=== PATIENT | male | born 1930 | race Caucasian/White ===

== ENCOUNTER 2016-11-13 21:27 | Emergency (ER) | payer MEDICARE, BC, OTHER ==
[2016-11-13 22:06] LABS: #Basophils 0.1 thou/uL (0.0-0.2); #Eosinphils 0.2 thou/uL (0.0-0.7); #Lymphocytes 1.9 thou/uL (1.20-3.40); #Monocytes 0.6 thou/uL (0.11-0.59); #Neutrophils 5.4 thou/uL (1.40-6.50); %Basophils 0.8 % (0.0-1.0); %Eosinophils 2.1 % (0.0-10.0); %Lymphocytes 23.5 % (21.0-51.0); %Monocytes 7.5 % (0.0-10.0); Hematocrit 42.9 % (42.0-52.0); Mean Platelet Volume 7.8 fL (7.4-10.4); Red Blood Cell (RBC) Count 4.38 mill/uL (4.70-6.10); White Blood Cell (WBC) Count 8.2 thou/uL (4.8-10.8)
[2016-11-13 22:24] LABS: ALT (SGPT) 12 U/L (8-55); AST (SGOT) 20 U/L (5-34); Alkaline Phosphatase 67 U/L (40-150); Anion Gap 14 mmol/L (10-20); BUN (Urea Nitrogen) 25 mg/dL (8.4-25.7); Bilirubin, Total 0.4 mg/dL (0.2-1.2); Calc. Creatinine Clearance 0 mL/min (70-130); Calcium 9.2 mg/dL (7.8-10.44); Carbon Dioxide 20 mmol/L (23-31); Chloride 112 mmol/L (98-107); Estimated GFR-MDRD 68; Globulin 2.4 g/dL (2.4-3.5); Protein, Total 5.9 g/dL (5.8-8.1)
[2016-11-13 22:32] LABS: Troponin I Less than 0.010 ng/mL (< 0.028)
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
[2016-11-13] MEDS ORDERED: Acetaminophen 325 MG TAB ONE (23:52)
[2016-11-13 23:54] LABS: Bilirubin Negative (Negative); Blood, Urine Small (Negative); Glucose, Urine (Dipstick) Negative (Negative); Ketone, Urine Negative (Negative); Nitrite Negative (Negative); Protein, Urine (Dipstick) Negative (Neg-Trace); Urobilinogen 0.2 mg/dL (0.2-1.0)
[2016-11-13 23:56] LABS: Bacteria/HPF None Seen HPF (None Seen); Hyaline Casts/LPF 0-3 HYALINE CAST LPF (0-3 Hyaline); Squamous Epithelial None Seen HPF (0-3); WBC/HPF None Seen HPF (0-3)
== END 2016-11-14 00:07 | disposition home or self-care (01) ==
LOC: ERS 21:27
DX: R07.81 Pleurodynia (principal); R31.9 Hematuria, unspecified; F17.210 Nicotine dependence, cigarettes, uncomplicated; V43.62XA Car passenger injured in collision with other type car in traffic accident, initial encounter
CPT/HCPCS: 36415; 71010; 80053; 81003; 81015; 82553; 84484; 85025; 93005

== ENCOUNTER 2018-11-05 14:32 | Observation (INO) | payer MEDICARE, BC ==
[2018-11-05 15:01] LABS: #Eosinphils 0.1 thou/uL (0.0-0.7); #Lymphocytes 1.9 thou/uL (1.20-3.40); #Monocytes 0.7 thou/uL (0.11-0.59); #Neutrophils 5.1 thou/uL (1.40-6.50); %Basophils 0.6 % (0.0-1.0); %Eosinophils 1.1 % (0.0-10.0); %Lymphocytes 23.7 % (21.0-51.0); %Monocytes 9.3 % (0.0-10.0); %Neutrophils 65.4 % (42.0-75.0); Hemoglobin 12.9 g/dL (14.0-18.0); Mean Corpuscular HGB CONC 33.6 g/dL (32.0-36.0); Mean Corpuscular Hemoglobin 32.2 pg (27.0-31.0); Mean Corpuscular Volume 95.9 fL (78.0-98.0); Mean Platelet Volume 7.8 fL (7.4-10.4); Platelet Count 190 thou/uL (130-400); RBC Distribution Width 11.5 % (11.5-14.5); Red Blood Cell (RBC) Count 4.02 mill/uL (4.70-6.10); White Blood Cell (WBC) Count 7.8 thou/uL (4.8-10.8)
[2018-11-05 15:22] LABS: ALT (SGPT) 9 U/L (8-55); AST (SGOT) 19 U/L (5-34); Albumin 3.7 g/dL (3.4-4.8); Alkaline Phosphatase 65 U/L (40-150); Anion Gap 9 mmol/L (10-20); BUN (Urea Nitrogen) 18 mg/dL (8.4-25.7); Bilirubin, Total 0.8 mg/dL (0.2-1.2); Calc. Creatinine Clearance 0 mL/min (70-130); Calcium 8.8 mg/dL (7.8-10.44); Carbon Dioxide 23 mmol/L (23-31); Chloride 100 mmol/L (98-107); Estimated GFR-MDRD 68; Globulin 1.8 g/dL (2.4-3.5); Glucose 106 mg/dL (83-110); Potassium 4.1 mmol/L (3.5-5.1); Protein, Total 5.5 g/dL (5.8-8.1); Sodium 128 mmol/L (136-145)
[2018-11-05 15:24] LABS: Bilirubin Negative (Negative); Blood, Urine Negative (Negative); Clarity Clear (Clear); Glucose, Urine (Dipstick) Normal (Negative); Leukocyte Negative Leu/uL (Negative); Nitrite Negative (Negative); Protein, Urine (Dipstick) Negative (Neg-Trace); Urobilinogen Normal mg/dL (Less than 2)
--- NOTE | 2018-11-05 15:38 | CT ---
Exam: Head CT without contrast HISTORY: Syncope COMPARISON: none FINDINGS: Hemorrhage: No intraparenchymal hemorrhage or extra-axial hematoma. Brain parenchyma: Cortical rosado-white matter differentiation is preserved. No mass effect or midline shift. Basilar cisterns are patent.Age-appropriate brain volume loss. Ventricular system: Ventricles and sulci are patent and symmetric. Calvarium: Intact. Sinuses and mastoid air cells: Adequate aeration. IMPRESSION: No acute intracranial process.
--- NOTE | 2018-11-05 15:54 | RAD ---
PORTABLE CHEST: HISTORY: Syncope. COMPARISON: 11/13/2016 exam. FINDINGS: Heart size is within normal limits. There are atherosclerotic changes of the aorta. The lungs show chronic change. No focal infiltrates. IMPRESSION: Chronic lung change. No acute process. POS: [facility]
[2018-11-05] MEDS ORDERED: Acetaminophen 325 MG TAB PO PRN (18:18)
[2018-11-05] MEDS ORDERED: Ondansetron PF 4 MG/2 ML Vial IVP PRN (18:18)
[2018-11-05] MEDS ORDERED: Nicotine 14 MG PATCH TD PRN (18:18)
[2018-11-05 18:26] LABS: Troponin I Less than 0.010 ng/mL (< 0.028)
[2018-11-05 19:19] VITALS: BMI 22.8
[2018-11-05] MEDS ORDERED: Senokot S 8.6-50 MG TAB PO PRN (20:03)
[2018-11-05] MEDS ORDERED: Labetalol HCl 100 MG/20 ML VIAL SLOW IVP PRN (20:03)
[2018-11-05] MEDS ORDERED: hydrALAZINE 20 MG/ML VIAL SLOW IVP PRN (20:03)
[2018-11-05] MEDS: Famotidine 20 MG TAB PO SCH (20:30)
[2018-11-05] MEDS: Sodium Chloride 0.9% 1,000 ML IV SCH (20:30)
[2018-11-05] MEDS: Enoxaparin Sodium 40 MG/0.4 ML SYRINGE SC SCH (20:30)
--- NOTE | 2018-11-05 20:58 | HP ---
CHIEF COMPLAINT: Syncope. PRIMARY CARE PROVIDER: Dr. Sheldon. HISTORY OF PRESENT ILLNESS: Mr. Clinton is a pleasant 88-year-old male with past medical history significant for BPH, on Flomax, which he recently stopped secondary to dizziness without relief, who presented to the hospital today after an episode of syncope. The patient was at taoism when the episode occurred. He had been up and walking and fell to the ground. He did have a presyncopal sensation of lightheadedness. He does not remember any other details. His [id number], who is an FAMILY NURSE, was at the scene and took his pulse, and noticed a 5- to 6-second pause and some irregularity in his pulse. EMS was called, and the patient was brought to our facility for further workup and treatment. His son is at the bedside and provides some history as well. Apparently, the patient had another syncopal event last Tuesday as well. He was not treated at that time. The patient reports that he has had some increasing dizziness with ambulation, as well as some dizziness with positional changes. Yesterday, he admits to drinking very little water as he was at a [employer] in [place] all day. He was sweating fairly profusely at that time. On arrival, blood pressure was mildly hypotensive at 88/51. He was given a 500 mL of bolus, and repeat blood pressure was 127/64. EKG showed normal sinus rhythm, no dynamic ST- or T-wave changes and no conduction abnormality. Per review of telemetry, he does have occasional PVCs. The patient has no significant cardiac history. He says that he has seen Dr. Yusuf in the past approximately 4 years ago for some possible irregularity in his heartbeat. He underwent stress testing at that time. He has not followed up or know of any specific cardiac diagnosis. REVIEW OF SYSTEMS: A 12-point review of systems was performed. As mentioned, the patient has reported some dizziness with ambulation over the past year or so as well as 2 syncopal events. Otherwise, 12-point review of systems was performed and is negative. He denies any recent illnesses or fevers. He does have chronic issue with frequent urination, secondary to BPH. PAST MEDICAL HISTORY: Squamous cell carcinoma of the face, status post Mohs procedure. PAST SURGICAL HISTORY: Mohs procedure. SOCIAL HISTORY: The patient lives alone. He is a smoker and has been smoking since the time he was 18. He is currently smoking half pack of cigarettes per day. He drinks alcohol socially. No illicit drug use. FAMILY HISTORY: Negative for coronary artery disease or CVA. The patient also reports he cannot think of any cancers that run in his family. ALLERGIES: NO KNOWN DRUG ALLERGIES. HOME MEDICATIONS: Aspirin 325 mg daily. PHYSICAL EXAMINATION: VITAL SIGNS: Blood pressure 127/64, pulse is 68, O2 saturation is 96% on room air, and respirations 17. GENERAL: This is an elderly male, resting comfortably in the emergency department, in no acute distress, conversing easily. HEENT: Head is atraumatic and normocephalic. Mucous membranes are moist. NECK: Trachea is midline. No JVD. CV: S1 and S2. Regular rate and rhythm. No appreciable murmurs, rubs, or gallops. LUNGS: Regular respiratory rate and pattern, overall decreased vesicular breath sounds; however, no rhonchi or wheezes noted. ABDOMEN: Positive bowel sounds. Soft, nontender. EXTREMITIES: No edema. Warm and well perfused. NEUROLOGIC: Cranial nerves 2 through 12 are grossly intact. The patient is nonfocal. PSYCHIATRIC: Appropriate affect in manner. Alert and oriented x3. LABORATORY DATA: White blood cell count 7.8, hemoglobin 12.9, hematocrit 38.5, and platelets 190. Sodium 128, potassium 4.1, anion gap is 9, BUN 18, creatinine 1.04, AST 19, ALT 9, and alkaline phosphatase 65. Troponin negative x2. BNP 176. ASSESSMENT: 1. Syncope - suspect orthostatic hypotension versus arrhythmogenic/ bradyarrhythmia. 2. Hyponatremia. 3. Occasional premature ventricular contractions. 4. Benign prostatic hypertrophy. 5. Tobacco abuse. PLAN: At this time, we will admit the patient for further syncopal workup. We will continue telemetry monitoring. We will continue gentle IV fluid resuscitation and get orthostatic vital signs. We will order a carotid Doppler as well as an echocardiogram. Magnesium level is currently pending. We will replete as indicated. Given his history and syncopal event x2, we will go ahead and consult his winder fixer, Dr. Yusuf for recommendations regarding consideration for event recorder versus possible implantable loop recorder. If he is indeed profoundly orthostatic, may need to start midodrine versus Northera. Further recommendations based on findings of hospital course and noninvasive testing. GI and DVT prophylaxis have been ordered. Fall precautions are in place. Job ID: [id number] MTDD
[2018-11-05 21:22] LABS: Troponin I Less than 0.010 ng/mL (< 0.028)
[2018-11-06] MEDS: Sodium Chloride 0.9% 1,000 ML IV SCH (05:23)
[2018-11-06 06:15] LABS: Anion Gap 7 mmol/L (10-20); BUN (Urea Nitrogen) 16 mg/dL (8.4-25.7); Calc. Creatinine Clearance 54 mL/min (70-130); Calcium 8.9 mg/dL (7.8-10.44); Carbon Dioxide 24 mmol/L (23-31); Chloride 111 mmol/L (98-107); Estimated GFR-MDRD 74; Glucose 80 mg/dL (83-110); Potassium 4.1 mmol/L (3.5-5.1); Sodium 138 mmol/L (136-145)
[2018-11-06] MEDS: Famotidine 20 MG TAB PO SCH ×2 (09:42→20:12)
--- NOTE | 2018-11-06 11:17 | CON ---
DATE OF CONSULTATION: 11/06/2018 INDICATION FOR CONSULTATION: An 88-year-old patient with syncopal episode. HISTORY OF PRESENT ILLNESS: This is a very pleasant 88-year-old gentleman, who was in anabaptism last week when he had a syncopal episode. After anabaptism, he did not have any forewarning, but then all of a sudden had a syncopal episode. Yesterday, he had some episodes of being lightheaded and dizzy, but did not have any syncopal episode. He presented to the emergency room and was admitted to the hospital previously. He had been on medications for his prostate several years ago and he had to stop these after becoming dizzy. At this time, the only medication he is taking is an aspirin. He has had no previous cardiac history. As far as we can determine, he has had a negative stress test in the past and the ejection fraction has been normal. This morning, he underwent carotid Doppler evaluation. He did have some left internal carotid artery stenosis, which is less than 50% probably. The full report is still pending, but when I was there looking at the pictures and images as the guitar technician was taking these pictures, it did not appear to be critical. I do not believe he has had another echocardiogram. We will need to repeat the echocardiogram to determine and to ensure that his left ventricular systolic function is normal. This has been ordered, but not yet taken. Otherwise, he has had no cardiac complaints. He denied any shortness of breath or chest pain, and overall has been relatively healthy for someone of his age. PAST MEDICAL HISTORY: Significant for some squamous cell carcinoma of the face and he had a Mohs procedure performed. Otherwise, he has been relatively healthy. SOCIAL HISTORY: He lives alone. He has smoked in the past. I believe he continues to smoke up to half a pack a day. He drinks occasional alcohol. FAMILY HISTORY: Negative for any early heart disease. ALLERGIES: NONE. MEDICATIONS: He only takes an aspirin a day, a full dose aspirin. REVIEW OF SYSTEMS: A 12-point review of systems is unremarkable, except he does have some problem with some hesitancy with urination and has a history of a benign prostatic hypertrophy. Otherwise, he had no significant complaints. He said that he noticed he has become weaker, but no chest pain, no shortness of breath. No nausea, vomiting, or diarrhea. No dysuria, polyuria, or hematuria. He has no claudication symptoms, and the only complaint is the dizziness, which he has noted recently. PHYSICAL EXAMINATION: GENERAL: Reveals a well-developed, well-nourished gentleman, who is in no acute distress. He is alert. He is oriented. VITAL SIGNS: Stable. His blood pressure is 120/56, heart rate is in the 70s to 80s and shows a sinus rhythm. He has had no pauses and no significant bradycardia. Respiratory rate is 16. His temperature is 99.9 today, earlier was 97.8. HEENT: Shows the head to be normocephalic and atraumatic. Carotid pulses are present. I could not hear any significant bruits. CHEST: Clear to auscultation without rales, rhonchi, or wheezing. CARDIOVASCULAR: Reveals a regular rate and rhythm. He has occasional ectopy, but otherwise unremarkable. There are no significant murmurs, heaves, thrills, bruits, or rubs. ABDOMEN: Soft, flat, nontender. Positive bowel sounds are present. There is no organomegaly or masses noted. Femoral pulses are present. EXTREMITIES: Showed no clubbing, cyanosis, or edema. Pedal pulses are present. Also, radial pulses present. NEUROLOGICAL: Neurologically, he appears to be fully intact. I cannot elicit any gross focal motor deficits for someone of his age. He seems to have normal strength and normal tone. SKIN: Warm and dry. LABORATORY DATA: Shows a WBC of 7.8, hemoglobin is 12.9, platelet count is 190,000. Sodium is 138, potassium is 4.1, BUN is 16, his creatinine is 0.96, and his blood sugar is 80. BNP was 176, and cardiac enzymes are negative. Urinalysis also showed no evidence of infection. IMPRESSION: 1. Syncopal episode 1 week ago with no significant treatment or followup at that time, but uncertain etiology. The family member was present earlier was an FAMILY LITERACY COORDINATOR, who said that she had felt that the pulse was weak at that time and also felt that there were some pauses. He has had no pauses here on the monitor or any significant arrhythmias. 2. Lightheadedness or dizziness. The carotid arteries did not appear to be critical, but he does have some left internal carotid artery stenosis, most likely less than 50%. We will await the results of the Doppler interpretation. 3. Benign prostatic hypertrophy. He seems to manage this quite well despite not being on any medications. At this time, we will continue to follow him this morning, but most likely he will best be served by undergoing an implantation of an implantable loop recorder. We will also check orthostatic blood pressures to see whether or not he maybe orthostatic. In the past, we felt that his syncopal episode was due to orthostatic hypotension. If the blood pressures are stable, then most likely he will need to undergo implantation of a LINQ to determine whether or not he is having any arrhythmias or pauses. He did mention to me that in the past if he drinks a lots of fluid and stays up with the intake, then normally it helps dizziness or lightheadedness, and it is certainly maybe due to hypotension. 4. History of tobacco abuse. He will be again instructed not to smoke. Thank you very much for allowing us to participate in care of this pleasant gentleman. I have discussed already with him the possibility he may need to undergo implantation of a LINQ, but I will await the results of the echocardiogram prior to making that decision. Job ID: [id number]
--- NOTE | 2018-11-06 11:30 | ULT ---
BILATERAL CAROTID DUPLEX ULTRASOUND: HISTORY: Syncope. FINDINGS: Real-time color Doppler evaluation of the right and left carotid systems was performed. This shows s ome moderate plaque formation bilaterally more prominent at the origin of the right internal carotid artery. On the right side, peak systolic velocities of the common carotid were 126 cm/s. Internal carotid ve locities were 98 cm/s. Internal carotid velocities were 89 cm/s. On the left side, peak systolic velocities of the common carotid were 95 cm/s. Internal carotid velo cities were 169 cm/s with diastolic velocities of 41 cm/s. External carotid velocities were 100 cm/s . Vertebral flow is antegrade bilaterally. IMPRESSION: 1. No evidence of hemodynamically significant stenosis of the right internal carotid artery. 2. Findings that would suggest 50-69% narrowing of the left internal carotid artery by NASCET criter ia. Further evaluation with CT angiography may be beneficial in this case. POS: [facility]
--- NOTE | 2018-11-06 13:46 | PDOC.HOSPP ---
- Subjective Encounter Date: 11/06/18 Encounter Time: 09:43 Subjective: 88 y/o male with BPH current off flomax due to dizziness admitted after a syncopal episode. Patient was noted to be hypotension on arrival. Relative also reported 6 second pause in the immediate post syncope period. Treated with IVF with improvement of BP and dizziness. Denied chest pain, nausea, vomiting, or change in bowel habit. - Objective Vital Signs & Weight: Vital Signs (12 hours) Temp Pulse Resp BP BP BP BP 11/06/18 11:00 97.4 F L 69 18 129/71 11/06/18 08:52 81 120/56 L 11/06/18 08:15 59 L 112/59 L 11/06/18 07:47 99.9 F H 71 16 11/06/18 04:00 97.8 F 72 18 131/68 BP Pulse Ox 11/06/18 11:00 97 11/06/18 08:52 11/06/18 08:15 11/06/18 07:47 145/71 H 95 11/06/18 04:00 94 L Weight Weight 154 lb 5 oz I&O: 11/05/18 11/06/18 11/07/18 06:59 06:59 06:59 Intake Total 1300 480 Output Total 2500 550 Balance -1200 -70 Result Diagrams: 11/05/18 14:54 11/06/18 05:32 Hospitalist ROS - Medication Medications: Active Medications Generic Name Dose Route Start Last Admin Trade Name Freq PRN Reason Stop Dose Admin Enoxaparin Sodium 40 mg 11/05/18 21:00 11/05/18 20:30 Lovenox SC 40 mg 2100 ROSALEE Administration Famotidine 20 mg 11/05/18 21:00 11/06/18 09:42 Pepcid PO 20 mg BID ROSALEE Administration Sodium Chloride 1,000 mls @ 100 mls/hr 11/05/18 19:15 11/06/18 05:23 Normal Saline 0.9% IV 1,000 mls .Q10H ROSALEE Administration - Exam General Appearance: awake alert Eye: anicteric sclera ENT: normocephalic atraumatic, moist mucosa Neck: supple, symmetric Heart: RRR Respiratory: no wheezes, no ronchi, normal chest expansion Gastrointestinal: soft, non-tender, non-distended, normal bowel sounds Extremities: no cyanosis, no edema Neurological: cranial nerve grossly intact, no focal deficits Musculoskeletal: generalized weakness, diffuse muscle atrophy Psychiatric: normal affect, A&O x 3 Hosp A/P (1) Syncope and collapse Code(s): R55 - SYNCOPE AND COLLAPSE Status: Acute (2) Hypotension Status: Acute (3) Dehydration with hyponatremia Code(s): E87.1 - HYPO-OSMOLALITY AND HYPONATREMIA Status: Acute (4) Orthostatic hypotension Code(s): I95.1 - ORTHOSTATIC HYPOTENSION Status: Acute (5) BPH (benign prostatic hyperplasia) Code(s): N40.0 - BENIGN PROSTATIC HYPERPLASIA WITHOUT LOWER URINRY TRACT SYMP Status: Acute (6) Arrhythmia Code(s): I49.9 - CARDIAC ARRHYTHMIA, UNSPECIFIED Status: Suspected (7) Physical deconditioning Code(s): R53.81 - OTHER MALAISE Status: Acute (8) Atherosclerosis of left carotid artery Code(s): I65.22 - OCCLUSION AND STENOSIS OF LEFT CAROTID ARTERY Status: Acute - Plan Start midodrine as patient is still orthostatic despite looking euvolemic. Start lipitor and asa for carotid atherosclerosis DC IVF. Awaiting echo report Continue telemetry
[2018-11-06] MEDS: Midodrine HCl 5 MG TAB PO SCH ×2 (14:25→20:12)
[2018-11-06] MEDS: Enoxaparin Sodium 40 MG/0.4 ML SYRINGE SC SCH (20:12)
[2018-11-06] MEDS ORDERED: Atorvastatin Calcium 40 MG TAB PO SCH (21:00)
[2018-11-07] MEDS: Famotidine 20 MG TAB PO SCH (08:14)
[2018-11-07] MEDS: Midodrine HCl 5 MG TAB PO SCH ×2 (08:14→16:00)
--- NOTE | 2018-11-07 08:46 | PDOC.CPN ---
- Subjective Date: 11/07/18 Time: 08:54 Interval history: The pt seen and examined. No cardiac complaints. 19 beats of AIVR with PVCs last night with no symptoms. - Objective Allergies/Adverse Reactions: Allergies Allergy/AdvReac Type Severity Reaction Status Date / Time No Known Allergies Allergy Unverified 11/05/18 18:39 Visit Medications: Current Medications Acetaminophen (Tylenol) 650 mg PO Q4H PRN PRN Reason: Headache/Fever/Mild Pain (1-3) Aspirin (Ecotrin) 81 mg PO DAILY [facility] Last Admin: 11/07/18 08:14 Dose: 81 mg Atorvastatin Calcium (Lipitor) 40 mg PO HS [facility] Last Admin: 11/06/18 20:12 Dose: 40 mg Enoxaparin Sodium (Lovenox) 40 mg SC 2100 [facility] Last Admin: 11/06/18 20:12 Dose: 40 mg Famotidine (Pepcid) 20 mg PO BID [facility] Last Admin: 11/07/18 08:14 Dose: 20 mg Hydralazine HCl (Apresoline) 10 mg SLOW IVP Q4H PRN PRN Reason: SBP > 180 and HR < 70 Labetalol HCl (Normodyne) 20 mg SLOW IVP Q4H PRN PRN Reason: SBP > 180 and HR >/= 70 Midodrine (Proamatine) 5 mg PO TID [facility] Last Admin: 11/07/18 08:14 Dose: 5 mg Nicotine (Nicoderm Patch) 14 mg TD Q24H PRN PRN Reason: Smoking Cessation Ondansetron HCl (Zofran) 4 mg IVP Q6H PRN PRN Reason: Nausea/Vomiting Senna/Docusate Sodium (Senokot S) 2 tab PO BIDPRN PRN PRN Reason: Constipation Sodium Chloride (Flush - Normal Saline) 10 ml IVF PRN PRN PRN Reason: Saline Flush Last Admin: 11/07/18 08:15 Dose: 10 ml Vital Signs & Weight: Vital Signs Temp Pulse Resp BP Pulse Ox 11/07/18 04:00 98 F 72 20 134/68 95 Weight 150 lb 3.2 oz - Physical Exam General: alert & oriented x3 HEENT: mucus membranes moist Neck: supple neck Cardiac: regular rate and rhythm, S1/S2 Lungs: clear to auscultation Neuro: cranial nerve 2-12 intact Abdomen: unremarkable Skin: clear Musculoskeletal: decreased range of motion - Labs Result Diagrams: 11/05/18 14:54 11/06/18 05:32 Troponin/CKMB Troponin I Less than 0.010 ng/mL (< 0.028) 11/05/18 20:52 - Telemetry Sinus rhythms and dysrhythmias: sinus rhythm (SR with occ PVCs) - Assessment/Plan Assessment/Plan: 1. Syncope - No pauses for more than 24 hrs. He may have syncopal episode possible due to Orthostatic Hypotension. On Midodrine 5mg TID;Will order TEDs from this AM. 2. Current smoker - Strongly recommend tobacco cessation. MAR reviewed * Echo on 11/06/2018 with EF 50-55%, grade I dd, mild MR, TR, and VA * From Cardiac standpoint, the pt is stable to d/c home with 7 day EVR. The pt will f/u with Dr Yusuf' office within 1 wk (same day he drops off his EVR device to Dr Yusuf' office) Pt. seen and eval. I agree with the A/P by the [employer]. We have discussed the pt. Chest clear. RRR , occasional ectopy. Okay to discharge. Violetta
[2018-11-07] MEDS ORDERED: Aspirin 81 mg Enteric Coated Tablet PO SCH (09:00)
--- NOTE | 2018-11-07 14:23 | PDOC.HOSPP ---
- Subjective Encounter Date: 11/07/18 Encounter Time: 14:22 Subjective: Ms. Clinton was seen today in follow-up of syncope. He does not have any complaints. - Objective Vital Signs & Weight: Vital Signs (12 hours) Temp Pulse Resp BP BP BP BP 11/07/18 12:00 98.6 F 77 16 109/59 L 113/53 L 132/68 11/07/18 08:00 97.9 F 74 18 121/68 125/79 120/72 158/74 H 11/07/18 04:00 98 F 72 20 134/68 Pulse Ox 11/07/18 12:00 94 L 11/07/18 08:00 96 11/07/18 04:00 95 Weight Weight 150 lb 3.2 oz I&O: 11/06/18 11/07/18 11/08/18 06:59 06:59 06:59 Intake Total 1300 3160 820 Output Total 2500 2550 1300 Balance -1200 610 -480 Result Diagrams: 11/05/18 14:54 11/06/18 05:32 Hospitalist ROS - Medication Medications: Active Medications Generic Name Dose Route Start Last Admin Trade Name Freq PRN Reason Stop Dose Admin Aspirin 81 mg 11/07/18 09:00 11/07/18 08:14 Ecotrin PO 81 mg DAILY ROSALEE Administration Atorvastatin Calcium 40 mg 11/06/18 21:00 11/06/18 20:12 Lipitor PO 40 mg HS ROSALEE Administration Enoxaparin Sodium 40 mg 11/05/18 21:00 11/06/18 20:12 Lovenox SC 40 mg 2100 ROSALEE Administration Famotidine 20 mg 11/05/18 21:00 11/07/18 08:14 Pepcid PO 20 mg BID ROSALEE Administration Midodrine 5 mg 11/06/18 15:00 11/07/18 08:14 Proamatine PO 5 mg TID ROSALEE Administration Sodium Chloride 10 ml 11/05/18 18:39 11/07/18 08:15 Flush - Normal Saline IVF 10 ml PRN PRN Administration Saline Flush - Exam Eye: PERRL, anicteric sclera Heart: RRR, no murmur, no gallops, no rubs, normal peripheral pulses Respiratory: CTAB, no wheezes, no rales, no ronchi, normal chest expansion, no tachypnea, normal percussion Gastrointestinal: soft, non-tender, non-distended, normal bowel sounds, no palpable masses, no hepatomegaly, no splenomegaly Hosp A/P (1) BPH (benign prostatic hyperplasia) Code(s): N40.0 - BENIGN PROSTATIC HYPERPLASIA WITHOUT LOWER URINRY TRACT SYMP Status: Acute (2) Orthostatic hypotension Code(s): I95.1 - ORTHOSTATIC HYPOTENSION Status: Acute (3) Syncope and collapse Code(s): R55 - SYNCOPE AND COLLAPSE Status: Acute - Plan * Syncope- patient had LINQ recorder placed * Orthostatic hypotension- continue Midodrine * Stable for discharge home
[2018-11-07 16:25] VITALS: BP 140/91; TEMP 98.7
--- NOTE | 2018-11-08 00:42 | DIS ---
DATE OF ADMISSION: 11/05/2018 DATE OF DISCHARGE: 11/07/2018 PRIMARY CARE PHYSICIAN: Shun Sheldon, DISCHARGE DISPOSITION: Home. PRIMARY DISCHARGE DIAGNOSES: 1. Syncope. 2. History of squamous cell carcinoma of the face. 3. Orthostatic hypotension. 4. BPH. DISCHARGE MEDICATIONS: 1. Midodrine 5 mg p.o. t.i.d. 2. Aspirin 325 mg daily. IMAGING DONE DURING THE HOSPITAL STAY: The patient had bilateral carotid Dopplers showing no evidence of any hemodynamically significant stenosis in the right coronary and some moderate 50% to 90% in the left. The patient had an echocardiogram and this demonstrated an EF of 50% to 55%, some E to A flow reversal suggestive of diastolic dysfunction. No mention of any significant valvular disease. CODE STATUS: Full code. ALLERGIES: NO KNOWN DRUG ALLERGIES. HOSPITAL COURSE: Mr. Clinton is a pleasant 88-year-old gentleman, who presented to the emergency room with feeling dizzy and had episode of syncope, the full details of which are outlined in the history and physical. He was placed in observation and he was evaluated for possible cerebrovascular disease. This was essentially negative. There was some mention that he may have had some type of arrhythmia or pauses based on a family member, who witnessed the event and noted some irregular heart rhythm and possible pauses. For this reason, Cardiology was consulted and the patient had a LINQ recorder placed prior to discharge. He was also started on midodrine as he did have orthostatic hypotension as well and he has been asked to follow up with his primary care physician in 1 to 2 weeks. Job ID: [id number]
--- NOTE | 2018-11-11 14:11 | EKG ---
Test Reason : Blood Pressure : / mmHG Vent. Rate : 068 BPM Atrial Rate : 068 BPM P-R Int : 180 ms QRS Dur : 096 ms QT Int : 404 ms P-R-T Axes : 050 008 068 degrees QTc Int : 429 ms Sinus rhythm with occasional Premature ventricular complexes Septal infarct , age undetermined Abnormal ECG Confirmed by KASEY QUEZADA ([id number]), research editor JAME CROWDER ([id number]) on 11/11/2018 2:10:54 PM Referred By: Confirmed By:KASEY QUEZADA
== END 2018-11-07 17:56 | disposition home or self-care (01) ==
LOC: ERS 14:32 → 2NO 16:13
PROVIDERS: ADMIT Family Medicine; ATTEND Family Medicine
DX: I95.1 Orthostatic hypotension (principal); E87.1 Hypo-osmolality and hyponatremia; N40.0 Benign prostatic hyperplasia without lower urinary tract symptoms; I49.3 Ventricular premature depolarization; F17.210 Nicotine dependence, cigarettes, uncomplicated; Z79.82 Long term (current) use of aspirin; Z79.899 Other long term (current) drug therapy
CPT/HCPCS: 70450; 71045; 80048; 80053; 81003; 83735; 83880; 84484 ×2; 85025; 93005; 93306; 93880; 96360; 96361 ×3; 96372 ×2; 97139 ×2; 99285; G0378 ×4; 36415; J1650

== ENCOUNTER → 2018-12-12 | Day surgery (SDC) | payer MEDICARE, BC ==
[2018-12-11 10:37] VITALS: BMI 20.7
[~2018-12-12] MED LIST: CEFAZOLIN 1 GM VIAL ONE; Gentamicin 80 MG/2 ML VIAL ONE; Midazolam HCl 2 mg/2 ml Vial ONE
[2018-12-12 07:30] LABS: PTT 28.1 SEC (22.9-36.1); Prothrombin Time 13.6 SEC (12.0-14.7)
[2018-12-12 07:51] LABS: Cardiac Risk 2.9 (Less than 4.5)
--- NOTE | 2018-12-12 13:00 | RAD ---
FRONTAL RADIOGRAPH CHEST: DATE: 12/12/2018. COMPARISON: 11/05/2018. HISTORY: Evaluate chest following pacemaker placement. FINDINGS: There is a small pneumothorax in the left lung apex, the pleural edge projecting between the 3rd and 4th ribs. There is a dual-lead transvenous pacing device inserted via a left subclavian approach wit h leads overlying the region of the right atrium and the right ventricle. Lungs are hyperinflated wi th increased linear interstitial density, suggesting COPD. IMPRESSION: Small pneumothorax in the left lung apex. These results were called to the covering nurse, Lydia Gerber, in the PCU at 12:35 p.m. 12/12/2018. CODE CR POS: [facility]
--- NOTE | 2018-12-12 15:18 | RAD ---
EXAM: Single view of the chest HISTORY: Pneumothorax COMPARISON: 12/12/2018 FINDINGS: Single view of the chest shows a normal sized cardiomediastinal silhouette. The pacemaker is unchanged in position. There is a stable small left apical pneumothorax. There is no evidence of consolidation, mass, or pleural effusion. The bones are unremarkable. IMPRESSION: Stable small left apical pneumothorax.
--- NOTE | 2018-12-12 17:18 | CCL ---
DATE OF PROCEDURE: 12/12/18 INDICATION FOR PROCEDURE: This is an 88-year-old gentleman who was found to have sinus node dysfunction with significant pauses and presyncopal episodes. Pauses were up to 4 seconds. He was advised to undergoing dual chamber pac emaker insertion. He remains in sinus rhythm. He was taken to the cardiac nitriles lab technician, prepped and draped in the sterile fashion. The procedure was pe rformed without difficulties or complications. He was implanted with a dual chamber pacemaker from [employer] with two screw-in leads. One in the atrium and one in the ventricle. He was implanted with an MRI compatible device an [employer] [id number]. No complications or difficulties were encountered. He was im planted with a dual chamber pacemaker due to increased risk of pacemaker syndrome in this elderly pat ient. Hopefully he will has relatively good conduction from the atrium to the ventricle and hopefully will have more atrial pacing with ventricular tracking. A full dictated note can be found on the daniel rt. He was given 1 mg of IV versed for conscious sedation and throughout the procedure he was monitor ed by an independent observer present for heart rate, blood pressure and O2 saturation. Total sedatio n time was 36 minutes.
--- NOTE | 2018-12-13 02:58 | DIS ---
DATE OF ADMISSION: 12/12/2018 DATE OF DISCHARGE: 12/12/2018 DATE OF PROCEDURE: 12/12/2018 ADMITTING DIAGNOSES: 1. Sinus node dysfunction with significant pauses and presyncopal episodes, pauses are up to 4 seconds. He was advised to undergo dual chamber pacemaker insertion. 2. His other diagnoses include benign prostatic hypertrophy, also some degree of hypotension which is felt to be orthostatic hypotension. 3. syncope. DISCHARGE DIAGNOSES: 1. Sinus node dysfunction with significant pauses and presyncopal episodes, pauses are up to 4 seconds. He was advised to undergo dual chamber pacemaker insertion. 2. His other diagnoses include benign prostatic hypertrophy, also some degree of hypotension which is felt to be orthostatic hypotension. 3. syncope. PROCEDURE: Included dual-chamber pacemaker insertion with MRI compatible device from [employer] with two screw-in leads, one in the atrium and one in the ventricle. DISCHARGE MEDICATIONS: Include; 1. Tamsulosin HCl 0.4 mg daily half an hour following the same meal. 2. Aspirin 81 mg a day. 3. Midodrine HCl 10 mg t.i.d. DISCHARGE INSTRUCTIONS: He will follow with me in 7 to 10 days in the office for wound check. He will continue his routine followup with the primary care physician, Dr. Sheldon. HOSPITAL COURSE: This very pleasant 88-year-old gentleman, who has been found to have presyncopal episodes, underwent an event monitor, which showed evidence of sinus node dysfunction with significant pauses up to 4 seconds and with some associated symptoms with pauses up to 3 seconds and he was advised to undergo dual chamber pacemaker insertion. This was performed today without difficulties or complications. He was implanted with an MRI compatible device. The upper rate was set at 110, the lower rate was set at 60. He will be discharged home and I will see him back in the office in 7 to 10 days for wound check. Job ID: [id number]
--- NOTE | 2018-12-15 10:04 | EKG ---
Test Reason : PREOP Blood Pressure : / mmHG Vent. Rate : 072 BPM Atrial Rate : 072 BPM P-R Int : 164 ms QRS Dur : 090 ms QT Int : 408 ms P-R-T Axes : 063 008 075 degrees QTc Int : 446 ms Sinus rhythm with occasional Premature ventricular complexes Nonspecific ST and T wave abnormality Abnormal ECG Confirmed by ROSARIO MORAN MD ([id number]) on 12/15/2018 10:04:16 AM Referred By: Confirmed By:ROSARIO MORAN MD
--- NOTE | 2018-12-15 10:08 | EKG ---
Test Reason : POST PACEMAKER INSER Blood Pressure : / mmHG Vent. Rate : 074 BPM Atrial Rate : 074 BPM P-R Int : 222 ms QRS Dur : 092 ms QT Int : 390 ms P-R-T Axes : 081 008 059 degrees QTc Int : 432 ms Sinus rhythm with 1st degree A-V block with occasional Premature ventricular complexes Nonspecific ST and T wave abnormality Abnormal ECG Confirmed by LUISA AGUERO, ROSARIO ([id number]) on 12/15/2018 10:08:23 AM Referred By: KIMMIE Confirmed By:ROSARIO MORAN MD
== END ==
LOC: CCL 06:26
PROVIDERS: ATTEND Internal Medicine Cardiovascular Disease
PROC: 0JH607Z Insertion of Cardiac Resynchronization Pacemaker Pulse Generator into Chest Subcutaneous Tissue and Fascia, Open Approach (ICD-10-PCS; principal; 2018-12-12)
PROC: 02H63JZ Insertion of Pacemaker Lead into Right Atrium, Percutaneous Approach (ICD-10-PCS; 2018-12-12)
PROC: 02HK3JZ Insertion of Pacemaker Lead into Right Ventricle, Percutaneous Approach (ICD-10-PCS; 2018-12-12)
DX: I49.5 Sick sinus syndrome (principal); I95.9 Hypotension, unspecified; N40.0 Benign prostatic hyperplasia without lower urinary tract symptoms; Z87.891 Personal history of nicotine dependence; Z79.82 Long term (current) use of aspirin; Z79.899 Other long term (current) drug therapy
CPT/HCPCS: 33208; 36415; 71045; 80061; 85610; 85730; 93005; 93010; 99152; 99153; C1785; C1898; J0690; J1580; J2250

== ENCOUNTER 2019-02-08 14:28 | Inpatient (IN) | payer MEDICARE, BC ==
[2019-02-08 15:16] LABS: #Eosinphils 0.1 thou/uL (0.0-0.7); #Lymphocytes 1.3 thou/uL (1.20-3.40); #Monocytes 0.6 thou/uL (0.11-0.59); %Basophils 0.4 % (0.0-1.0); %Eosinophils 0.5 % (0.0-10.0); %Neutrophils 80.1 % (42.0-75.0); Hemoglobin 12.2 g/dL (14.0-18.0); Mean Corpuscular HGB CONC 33.1 g/dL (32.0-36.0); Mean Corpuscular Hemoglobin 32.2 pg (27.0-31.0); Mean Corpuscular Volume 97.4 fL (78.0-98.0); Mean Platelet Volume 8.9 fL (7.4-10.4); Platelet Count 153 thou/uL (130-400); Red Blood Cell (RBC) Count 3.78 mill/uL (4.70-6.10)
[2019-02-08 15:25] LABS: INR-International Normal Ratio 1.2; PTT 26.3 SEC (22.9-36.1); Prothrombin Time 15.5 SEC (12.0-14.7)
--- NOTE | 2019-02-08 15:28 | RAD ---
XR Hip Lt 2-3 View HISTORY: Left hip pain FINDINGS: There is a comminuted fracture involving the intertrochanteric region of the left proximal femur with associated foreshortening
--- NOTE | 2019-02-08 15:28 | RAD ---
XR Chest 1 View Portable HISTORY: Hip fracture, preoperative evaluation COMPARISON: 12/12/2018 FINDINGS: The heart size is normal. The aorta is tortuous. Left-sided pacer device remains in place. The lungs are well expanded without focal areas of consolidation, pneumothorax or pleural effusions. IMPRESSION: No radiographic evidence of acute cardiopulmonary process.
--- NOTE | 2019-02-08 15:29 | RAD ---
XR Pelvis AP STANDARD HISTORY: Left hip pain FINDINGS: There is a comminuted left intertrochanteric femoral fracture with associated foreshortening
[2019-02-08 15:35] LABS: ALT (SGPT) 8 U/L (8-55); AST (SGOT) 14 U/L (5-34); Albumin 3.6 g/dL (3.4-4.8); Alkaline Phosphatase 66 U/L (40-110); Anion Gap 10 mmol/L (10-20); BUN (Urea Nitrogen) 19 mg/dL (8.4-25.7); Bilirubin, Total 0.5 mg/dL (0.2-1.2); Calc. Creatinine Clearance 0 mL/min (70-130); Calcium 8.9 mg/dL (7.8-10.44); Carbon Dioxide 21 mmol/L (23-31); Chloride 112 mmol/L (98-107); Estimated GFR-MDRD 68; Globulin 2.2 g/dL (2.4-3.5); Glucose 117 mg/dL (83-110); Potassium 4.2 mmol/L (3.5-5.1); Protein, Total 5.8 g/dL (5.8-8.1); Sodium 139 mmol/L (136-145)
--- NOTE | 2019-02-08 15:57 | CT ---
CT BRAIN WITHOUT CONTRAST: HISTORY:Syncope and fall COMPARISON:11/05/2018 FINDINGS: Cortical atrophy is again seen. No evidence of acute infarct, hemorrhage, midline shift or abnormal extra-axial fluid collections is seen. The ventricular size is appropriate and the basilar cisterns are patent. The bony calvarium is intact. The visualized paranasal sinuses and mastoid air cells are well aerated. IMPRESSION: No CT evidence of acute intracranial process.
--- NOTE | 2019-02-08 16:10 | CT ---
CT CERVICAL SPINE WITH CORONAL AND SAGITTAL REFORMATIONS AND NO IV CONTRAST: HISTORY: Trauma, fall, neck pain FINDINGS: Multilevel degenerative changes are present. There is minimal anterolisthesis of C6 over C7 vertebral bodies. No acute fracture, subluxation or facet malalignment is identified. There is anterior wedging of the superior endplate of T1 vertebral body without associated soft tissue swelling are obvious fracture line. This likely represents a chronic finding. No prevertebral soft tissue swelling is apparent. The visualized lung apices are unremarkable. IMPRESSION: No CT evidence for fracture or traumatic subluxation.
[2019-02-08] MEDS ORDERED: Ondansetron PF 4 MG/2 ML Vial IVP PRN (17:10)
[2019-02-08] MEDS ORDERED: hydrALAZINE 20 MG/ML VIAL SLOW IVP PRN (17:10)
[2019-02-08] MEDS ORDERED: Dextrose 5% in Water 1,000 ML IV PRN (17:10)
[2019-02-08] MEDS ORDERED: Dextrose 50% Abboject 50 ML SYRINGE SLOW IVP PRN (17:10)
[2019-02-08] MEDS ORDERED: Ondansetron ODT 4 MG TAB PO PRN (17:10)
[2019-02-08] MEDS ORDERED: Morphine 2 MG/ML SYRINGE SLOW IVP PRN ×2 (17:10→20:07)
[2019-02-08] MEDS ORDERED: Sodium Chloride 0.9% 1,000 ML IV SCH (17:15)
[2019-02-08] MEDS ORDERED: CEFAZOLIN 2 GM in Premix Bag 1 BAG IVPB SCH (17:15)
[2019-02-08] MEDS ORDERED: traMADol HCl 50 MG TAB PO PRN ×2 (17:23→20:07)
[2019-02-08 17:34] LABS: Phosphorus 3.2 mg/dL (2.3-4.7)
--- NOTE | 2019-02-08 19:39 | HP ---
This is Mitzi Lisa NP dictating a report for Dr. Canchola. REQUESTING PHYSICIAN: ER Nurse practitioner Ifeoma Aguirre. CONSULTS: Orthopedic Surgery, Dr. Solis. PRIMARY CARE PHYSICIAN: Dr. Sheldon. AIRCRAFT LAYOUT WORKER: Dr. Yusuf. HISTORY OF PRESENT ILLNESS: This is an 88-year-old gentleman who lives at home alone, ambulates on his own without any assistance. He reports having a ground level fall. The patient states that everything blacked out and his legs gave out causing him to fall and landing on his left hip. The patient denies any other pain or injuries. The patient denies hitting his head. The patient was recently in the hospital for a syncopal workup in October of this year. 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 The patient was also seen by Cardiology and was diagnosed with sinus node dysfunction with significant pauses and presyncopal episodes. A dual chamber pacemaker was placed on December [address] Yusuf. The patient was evaluated in the emergency room and was found to have a left intertrochanteric femur fracture. A 12-lead EKG was also obtained showing bigeminy. Cardiac workup with troponin I was negative and electrolytes were normal. A repeat EKG was done with sinus rhythm and frequent PVCs. The patient's blood pressure has been stable in the emergency room. The patient's pain has been well controlled. The patient was given morphine for pain earlier. The patient denied any chest pain, shortness of breath, or dizziness before falling. PAST MEDICAL HISTORY: Benign prostatic hypertrophy, squamous cell carcinoma of the face, orthostatic hypotension. PAST SURGICAL HISTORY: Dual-chamber pacemaker in November of 2018, Mohs procedure for squamous cell carcinoma, cataract surgery. SOCIAL HISTORY: The patient lives alone, the patient is a previous smoker since he was a teenager. Denies any alcohol use, denies any illicit drug use. ALLERGIES: NO KNOWN DRUG ALLERGIES. HOME MEDICATIONS: 1. Flomax 0.4 mg at bedtime. 2. Midodrine 10 mg 3 times a day. REVIEW OF SYSTEMS: A 10-point review of systems is negative unless otherwise indicated in the above HPI. OBJECTIVE: VITAL SIGNS: Pulse 52, blood pressure 112/59, respirations 16, SpO2 of 100% on room air, temperature 98.2. GENERAL: Well-appearing elderly gentleman, resting comfortably in the ER bed. HEENT: Head is atraumatic and normocephalic. Pupils are equal bilateral. Mucous membranes are moist. NECK: Normal range of motion of neck, no cervical tenderness, trachea is midline. RESPIRATORY: Equal chest rise and fall, bilateral breath sounds clear without any wheezing, rales, or rhonchi. CARDIAC: Bradycardic, irregular, no murmurs. ABDOMEN: Soft, nontender, nondistended. EXTREMITIES: Tenderness with palpation to the left hip, left lower extremity is externally rotated and shortened, the patient has good distal pulses and sensation in all extremities. NEUROLOGIC: GCS 15, no focal deficits. LABORATORY DATA: WBC 10.0, RBC 3.78, hemoglobin 12.2, hematocrit 36.8, platelets 153. PT 15.5, INR 1.2, APTT 26.3. Sodium 139, potassium 4.2, chloride 112, carbon dioxide 21, anion gap 10, BUN 19, creatinine 1.03 estimated GFR 68, glucose 117, calcium 8.9, phosphorus 3.2, magnesium 2.0, alkaline phos 66, troponin I less than 0.010, albumin 3.6, globulin 2.2. Urinalysis pending. DIAGNOSTIC DATA: 1. Brain CT: Impression, no evidence of acute intracranial process. 2. Left hip x-ray: Comminuted fracture of the intertrochanteric region in the left proximal femur with associated foreshortening. 3. Pelvis x-ray: There is comminuted left intertrochanteric femur fracture with associated foreshortening. 4. Chest x-ray: No evidence of acute cardiopulmonary process. 5. Cervical spine CT: No evidence for fracture or traumatic subluxation. 6. 12-lead EKG: Bigeminy. Repeat 12-lead EKG, sinus rhythm with frequent PVCs , prolonged QT, lateral ischemia. IMPRESSION: 1. Status post syncopal episode, ground level fall. 2. Left intertrochanteric femur fracture. 3. Bradycardia 4. History of orthostatic hypotension, squamous cell carcinoma, benign prostatic hypertrophy, recent dual chamber pacemaker insertion. PLAN: We will admit the patient to the telemetry unit for continuous telemetry monitoring. We will interrogate the patient's pacemaker since he has been bradycardiac. Cardiology consult. The patient will be n.p.o. after midnight with maintenance IV fluids with normal saline at 100 an hour. The patient will be placed on a pain regimen. Family has requested that patient go to swing bed at [facility] once the patient is ready. We will place a PT/OT consult to evaluate and treat postop. Dr. Yusuf was notified that the patient was being admitted for syncope and left hip fracture. The plan was discussed with the patient and family who agrees. The plan was discussed with Dr. Canchola who agrees. Job ID: [id number] MTDD
[2019-02-08] MEDS: Acetaminophen 500 MG TAB PO SCH ×2 (19:40→23:23)
[2019-02-08 20:30] VITALS: BMI 22.6
[2019-02-08] MEDS: traMADol HCl 50 MG TAB PO SCH ×2 (20:41→23:23)
[2019-02-09] MEDS: Acetaminophen 500 MG TAB PO SCH ×5 (00:08→23:36)
[2019-02-09 00:38] LABS: Bilirubin Negative (Negative); Blood, Urine Negative (Negative); Clarity Clear (Clear); Glucose, Urine (Dipstick) Normal (Negative); Leukocyte Negative Leu/uL (Negative); Nitrite Negative (Negative); Protein, Urine (Dipstick) Negative (Neg-Trace); RBC/HPF 0-3 HPF (0-3); Squamous Epithelial None Seen HPF (0-3); Urobilinogen Normal mg/dL (Less than 2); WBC/HPF 0-3 HPF (0-3)
--- NOTE | 2019-02-09 00:38 | PRG ---
DATE OF SERVICE: SUBJECTIVE: The patient was seen this evening, resting in bed comfortably, and asleep but no signs of acute distress. OBJECTIVE: VITAL SIGNS: Temperature 99.3, pulse 96, respirations 18, oxygen saturation 98% on room air, and blood pressure 130/64. GENERAL: Well-appearing elderly male, lying in bed with no signs of acute distress. PULMONARY: Equal chest rise and fall. No signs of acute respiratory distress. ASSESSMENT: 1. Status post syncopal fall. 2. Left intertrochanteric femur fracture. 3. Bradycardia and bigeminy noted in the emergency department. 4. History of chronic hypotension, skin cancer and recent pacemaker placement in November of 2018. PLAN: The patient will be n.p.o. at midnight with normal saline at 100 an hour. We will restart the patient's home midodrine and Flomax. Dr. Yusuf is the record keeper who placed the pacemaker this year. She has been contacted and we will follow up her recommendations. The patient is no longer bradycardic and he was not symptomatic in the emergency department. We will continue to watch his vital signs closely on telemetry. Pending medical clearance by Trauma and Cardiology, the patient will go to the OR tomorrow with Orthopedic Surgery for fixation of the left intertrochanteric femur fracture. Postoperatively, he will need placement at a rehab or swing facility. Job ID: [id number]
[2019-02-09 00:40] LABS: Bacteria/HPF 1+ HPF (None Seen)
[2019-02-09 05:08] LABS: #Lymphocytes 1.4 thou/uL (1.20-3.40); #Monocytes 0.9 thou/uL (0.11-0.59); #Neutrophils 5.2 thou/uL (1.40-6.50); %Basophils 0.2 % (0.0-1.0); %Eosinophils 0.4 % (0.0-10.0); %Lymphocytes 18.3 % (21.0-51.0); %Monocytes 11.6 % (0.0-10.0); %Neutrophils 69.4 % (42.0-75.0); Hemoglobin 10.1 g/dL (14.0-18.0); Mean Corpuscular HGB CONC 33.1 g/dL (32.0-36.0); Mean Corpuscular Hemoglobin 32.3 pg (27.0-31.0); Mean Corpuscular Volume 97.5 fL (78.0-98.0); Mean Platelet Volume 8.6 fL (7.4-10.4); Platelet Count 133 thou/uL (130-400); Red Blood Cell (RBC) Count 3.14 mill/uL (4.70-6.10); White Blood Cell (WBC) Count 7.4 thou/uL (4.8-10.8)
[2019-02-09 05:11] LABS: Anion Gap 8 mmol/L (10-20); BUN (Urea Nitrogen) 17 mg/dL (8.4-25.7); Calc. Creatinine Clearance 58 mL/min (70-130); Calcium 8.4 mg/dL (7.8-10.44); Carbon Dioxide 23 mmol/L (23-31); Chloride 110 mmol/L (98-107); Estimated GFR-MDRD 74; Glucose 100 mg/dL (83-110); Phosphorus 3.4 mg/dL (2.3-4.7); Potassium 4.2 mmol/L (3.5-5.1); Sodium 137 mmol/L (136-145)
[2019-02-09] MEDS: traMADol HCl 50 MG TAB PO SCH ×4 (05:24→23:35)
--- NOTE | 2019-02-09 07:42 | CON ---
DATE OF CONSULTATION: HISTORY OF PRESENT ILLNESS: We were asked by ER and Trauma to see patient. The patient was in his normal state of health when he stumbled, falling, breaking his left hip, trochanteric fracture. There were no other injuries. Did not hit his head. He recalls the fall. Family is at the bedside, states that he has been falling quite a bit in the past, but had a pacemaker placed in the last month and this has improved quite a bit. He is also added a hypotension drug to help him with his syncopal episodes. Family states the patient is healthy other than his significant hard of hearing and recent stumbling episode, but otherwise lives alone, is independent, quit smoking in October secondary to his lean leader telling him to and has no other vices. PAST MEDICAL HISTORY: Positive for some falls, hypotension, arrhythmia, fixed by pacemaker, some visual changes, hard of hearing, and BPH. ALLERGIES: CURRENT ALLERGIES TO ANY MEDICATIONS, NONE. CURRENT MEDICATIONS: Midodrine and Flomax. PAST SURGICAL HISTORY: He has had a pacemaker and cataracts. FAMILY HISTORY: For this event is noncontributory. SOCIAL HISTORY: Retired. Independent liver. Quit smoking in October. Very rare beer. No drug use whatsoever. REVIEW OF SYSTEMS: Positive for left hip pain and some hearing loss. Denies any chest pain or shortness of breath, and he does have some BPH, the Flomax has helped this quite a bit per family. Rest of review of systems negative. PHYSICAL EXAMINATION: GENERAL: Well-nourished, well-developed male, alert, pleasant, no acute distress. Speech clear. Affect pleasant. Answers questions appropriately. Oriented x3. Again, family is at the bedside and you need to speak quite loudly for the patient to hear you. HEENT: Normal exam. Face symmetric. Tongue midline. NECK: Supple. Trachea midline. EXTREMITIES: Upper extremities, moving equally well. Equal size, shape, and symmetry. Normal bulk and tone. Lower extremities, left lower extremity is a little outward rotated and shortened, but he has good sensations to the top of his feet, and he does have some neuropathies to the bottom of his feet, mild. He can wiggle his toes, and he has equal DP and PT pulses. LUNGS: Respirations 16 and regular. ASSESSMENT: Left hip fracture. PLAN: We will get him set up for surgery tomorrow and let the family know currently he is 3rd case. Trauma is going to admit. We will get him consented. I did go over the surgeries with family, DHS versus small intertrochanteric nail, and they understand the surgery as it has been explained. Their questions and concerns have been addressed, and they are amenable to go forth with surgery knowing he may be at a little bit higher risk, but Trauma will treat his medical needs as they arise. Job ID: [id number]
[2019-02-09] MEDS: Midodrine HCl 5 MG TAB PO SCH ×3 (08:34→16:55)
[2019-02-09] MEDS: Polyethylene Glycol 3350 17 GM Packet PO SCH (08:34)
[2019-02-09] MEDS ORDERED: PHENYLEPHRINE-NS 100 MCG/ML 10 ML SYRINGE ONE ×2 (11:10→13:12)
[2019-02-09] MEDS ORDERED: Bupivacaine HCl 0.5%/Epinephrine 1:200,000/PF 30 ml Vial ONE (11:10)
[2019-02-09] MEDS ORDERED: PROPOFOL 200 MG/20 ML VIAL ONE (11:10)
[2019-02-09] MEDS ORDERED: Rocuronium Bromide 10 MG/ML (10ML VIAL) ONE (11:10)
--- NOTE | 2019-02-09 11:53 | CON ---
DATE OF CONSULTATION: 02/09/2019 INDICATION FOR CONSULTATION: An 88-year-old gentleman, who had a fall and has a fractured left hip. He also has a history of recent pacemaker insertion. He was noted to have some arrhythmias on the pacemaker evaluation; however, there was no indication that the pacemaker had any abnormalities and in normal function. He is pacing a very little in the ventricle, but has his own intrinsic rhythm. He does have sinus rhythm with ventricular bigeminy, but this appears to be otherwise stable. He has had no other significant past medical history for coronary artery disease or cardiomyopathy. At this time, he has remained stable. It is uncertain as to whether or not he actually had a syncopal episode or not. If so, most likely it was due to hypotension. He denies any chest pain or shortness of breath. PAST MEDICAL HISTORY: Significant for; 1. Squamous cell carcinoma of the skin. 2. He does have a history of orthostatic hypotension. 3. He has benign prostatic hypertrophy. 4. He is status post pacemaker insertion. SOCIAL HISTORY: He has no alcohol abuse. He smoked in the past, stopped many years ago. He lives alone. ALLERGIES: HE HAS NO KNOWN ALLERGIES. MEDICATIONS PRIOR TO ADMISSION: Included: 1. Midodrine. 2. Flomax. FAMILY HISTORY: Noncontributory. REVIEW OF SYSTEMS: Twelve-point review of systems unremarkable except what was noted in the history of present illness. PHYSICAL EXAMINATION: GENERAL: A well-developed, well-nourished gentleman, in no acute distress. VITAL SIGNS: Blood pressure of 102/55. No orthostatics have been done that I can see. He is afebrile. Heart rate is 90 and shows a sinus rhythm, respiratory rate is 11, and O2 saturations are 100% on room air. HEENT: Head is normocephalic and atraumatic. Carotid pulses are present. I do not hear any significant bruits. CHEST: Clear to auscultation without rales, rhonchi, or wheezing. CARDIOVASCULAR: Regular rhythm; however, there was significant ectopy noted. There were no gross murmurs, heaves, thrills, bruits, or rubs. ABDOMEN: Soft and nontender. Positive bowel sounds are present. EXTREMITIES: Some swelling of the left upper thigh area due to his recent fracture of the left hip. Popliteal pulses are present, somewhat difficult to palpate pedal pulses, but otherwise his vascular evaluation is unremarkable. SKIN: Warm and dry at this time. NEUROLOGIC: He appears to be stable. DIAGNOSTIC STUDIES: He did have a CT scan, which showed no evidence of any acute process. Chest x-ray also was unremarkable. EKG shows a ventricular bigeminy. He has occasional paced beats on the monitor. IMPRESSION: 1. An 88-year-old gentleman with a left intertrochanteric femur fracture, which needs to undergo surgical repair. He is otherwise stable and can proceed with this surgery. 2. History of orthostatic hypotension. This may be the etiology of the falls. 3. History of squamous cell carcinoma. He is stable by the primary care service. 4. Benign prostatic hypertrophy. Hopefully, he will not need a Bolanos catheter, but if so, may be somewhat problematic to insert. 5. Status post pacemaker insertion. The pacemaker function is normal by the evaluation. At this time, we will proceed with his surgical procedures. Job ID: [id number]
--- NOTE | 2019-02-09 12:12 | PRG ---
DATE OF SERVICE: 02/09/2019 SUBJECTIVE: This is an 88-year-old gentleman, who sustained a left hip fracture after a syncopal episode causing him to fall. The patient had no overnight events. The patient remains sinus rhythm with frequent PVCs on the beef specialist, rate of 60. The patient reports that his pain is well controlled. The patient denies any chest pain, shortness of breath, or dizziness at this time. OBJECTIVE: VITAL SIGNS: Temperature 98.0, pulse 91, respirations 16, SpO2 of 100% on room air, and blood pressure 102/55. GENERAL: Elderly appearing male, awake, alert, in no distress, hard of hearing. RESPIRATORY: Equal chest rise and fall, bilateral breath sounds clear. CARDIAC: Regular rate. ABDOMEN: Soft, nontender, and nondistended. EXTREMITIES: Left lower extremity externally rotated and shortened, distal pulses intact in all extremities. LABORATORY DATA: WBC 7.4, RBC 3.14, hemoglobin 10.1, hematocrit 30.6, platelets 133. Sodium 137, potassium 4.2, chloride 110, carbon dioxide 23, BUN 17, creatinine 0.96, estimated GFR 74, glucose 100, calcium 8.4, phosphorus 3.4, and magnesium 2.0. DIAGNOSTICS: There are no new diagnostics to review today. ASSESSMENT: 1. Status post syncopal fall. 2. Left intertrochanteric femur fracture. 3. Bradycardia and bigeminy noted in the emergency room, resolved. 4. History of chronic hypotension, skin cancer, and recent pacemaker placement in November 2018. PLAN: Continue n.p.o. and maintenance IV fluids, normal saline at 100 an hour. The patient is going to OR for his left hip repair with Orthopedic Surgery sometime today. The patient was evaluated by Dr. Canchola during morning rounds and has been cleared for surgery. Still pending cardiology recommendations. We will have the patient work with physical therapy postop. The plan was discussed with the patient, who agrees. Job ID: [id number]
[2019-02-09] MEDS ORDERED: Fentanyl 100 MCG/2 ML VIAL ONE ×2 (13:57→14:22)
[2019-02-09] MEDS ORDERED: Promethazine HCl 25 MG/ML VIAL IM PRN (15:38)
[2019-02-09] MEDS ORDERED: Promethazine HCl 25 MG/ML VIAL SLOW IVP PRN (15:38)
[2019-02-09] MEDS ORDERED: Ondansetron HCl/PF 4 MG/2 ML Vial IVP PRN (15:38)
[2019-02-09] MEDS: CEFAZOLIN 2 GM in Premix Bag 1 BAG IVPB SCH (19:18)
--- NOTE | 2019-02-09 20:05 | OP ---
DATE OF PROCEDURE: 02/09/2019 PREOPERATIVE DIAGNOSIS: Left intertrochanteric femur fracture. POSTOPERATIVE DIAGNOSIS: Left intertrochanteric femur fracture. PROCEDURE PERFORMED: Left intertrochanteric femur fracture, TFN nail. ANESTHESIA: General. TYPE DISK QUALITY CONTROL SUPERVISOR: LEXI Hdz IMPLANTS: Synthes 12 x 170 mm TFNA with 105 mm hip screw. ESTIMATED BLOOD LOSS: 150 mL. COMPLICATIONS: None. DRAINS: None. SPECIMEN: None. OUTCOME: Satisfactory. INDICATIONS FOR PROCEDURE: The patient is an 88-year-old gentleman status post ground level fall in which he sustained a left intertrochanteric femur fracture. The patient has now been seen by Cardiology for some bigeminy rhythm that he had preoperatively and he is felt to be optimized for surgical intervention. Informed consent has been obtained. I believe all questions have been answered. DESCRIPTION OF PROCEDURE: The patient was brought to the operating room and a time-out performed followed by induction of general anesthesia. Next, he was positioned supine on the fracture table with the injured extremity held in longitudinal traction and slight internal rotation. The well leg was also held in full extension with leg scissored slightly to allow for AP and lateral C-arm imaging of the left hip. Next, a sterile prep and drape was performed in the left lateral thigh. Next, a small incision was made proximal to greater trochanter. After skin was sharply incised, dissection was carried down bluntly such the tip of the greater trochanter could be palpated. A threaded guidewire was then passed from the starting point into the proximal canal of the femur. Next, a reamer was passed over the threaded guidewire to gain access to the intramedullary canal. A 12 x 170 mm nail was then passed into the femoral canal. Once it was delivered to an appropriate depth, a second incision was made distal to the first and a second threaded guidewire was then passed from the lateral cortex of the femur across the nail and into the femoral head approaching a [id number] position. Once appropriately positioned, measurement was taken off this guidewire and then a reamer set to 110 mm and passed over the guidewire for preparing the neck and head for acceptance of the hip screw. A 105 mm hip screw was introduced. Once fully delivered, it was compressed and then the locking mechanism engaged and backed off a half turn to allow for sliding hip compression. Next, the jig was used to insert a distal cross-lock screw through the same distal incision. Upon completion of this, the jig was removed from the nail and final AP and lateral C-arm images were obtained that showed acceptable alignment of fracture and hardware. The incision sites were then irrigated with bulb syringe, then closed in layers with 0 Vicryl for fascia, 2-0 Vicryl subcutaneously and shara for the skin. Xeroform gauze and tape dressing was applied to the thigh and then, the patient was transferred to recovery room in stable condition. There were no complications. He tolerated the procedure well. Job ID: [id number]
[2019-02-09] MEDS: Tamsulosin HCl 0.4 MG CAP PO SCH (20:48)
--- NOTE | 2019-02-09 21:32 | RAD ---
LEFT HIP TWO VIEWS: 02/09/19 HISTORY: Intraoperative film. This shows a compression screw and short stem intramedullary sydnee stabilizing the intertrochanteric fr acture in good position. IMPRESSION: Intraoperative films showing stabilization of intertrochanteric fracture. POS: GIL
--- NOTE | 2019-02-09 22:40 | PRG ---
DATE OF SERVICE: 02/09/2019 SUBJECTIVE: The patient was seen this evening, lying in bed with no signs of acute distress. He reported his pain is well controlled. He is postoperative day 0 after fixation of the left intertrochanteric femur fracture. Nursing reported he had some soup for dinner. He said that he was ready for bed. OBJECTIVE: VITAL SIGNS: Temperature 97.8, pulse 90, respirations 16, oxygen saturation 100% on room air, blood pressure 106/54. GENERAL: Well-appearing elderly male, sitting up in bed with no signs of acute distress. PULMONARY: Equal chest rise and fall. No signs of acute respiratory distress. ASSESSMENT: 1. Status post syncopal fall. 2. Left intertrochanteric femur fracture, status post repair. 3. Bradycardia with bigeminy in the emergency department, resolved. 4. History of hypertension, skin cancer, and pacemaker placement. PLAN: Continue regular diet and home medications. Discontinue IV fluids. Continue physical and occupational therapy. The patient was seen by Dr. Yusuf today, who reported the pacemaker is working appropriately and syncope was likely due to hypotension and not caused by pacemaker malfunction. The patient is pending placement at a facility. Job ID: [id number]
[2019-02-10] MEDS: CEFAZOLIN 2 GM in Premix Bag 1 BAG IVPB SCH ×2 (03:56→11:02)
[2019-02-10 05:22] LABS: Anion Gap 8 mmol/L (10-20); BUN (Urea Nitrogen) 16 mg/dL (8.4-25.7); Calc. Creatinine Clearance 54 mL/min (70-130); Calcium 8.3 mg/dL (7.8-10.44); Carbon Dioxide 25 mmol/L (23-31); Chloride 107 mmol/L (98-107); Estimated GFR-MDRD 68; Glucose 110 mg/dL (83-110); Magnesium 1.9 mg/dL (1.6-2.6); Phosphorus 2.3 mg/dL (2.3-4.7); Potassium 4.3 mmol/L (3.5-5.1); Sodium 136 mmol/L (136-145)
[2019-02-10] MEDS: Acetaminophen 500 MG TAB PO SCH ×3 (06:08→17:55)
[2019-02-10] MEDS: traMADol HCl 50 MG TAB PO SCH ×3 (06:08→17:55)
[2019-02-10] MEDS: Midodrine HCl 5 MG TAB PO SCH ×3 (06:09→18:39)
[2019-02-10 06:21] LABS: Hemoglobin 8.6 g/dL (14.0-18.0); Mean Corpuscular HGB CONC 33.6 g/dL (32.0-36.0); Mean Corpuscular Hemoglobin 32.8 pg (27.0-31.0); Mean Corpuscular Volume 97.4 fL (78.0-98.0); RBC Distribution Width 10.9 % (11.5-14.5); Red Blood Cell (RBC) Count 2.62 mill/uL (4.70-6.10); White Blood Cell (WBC) Count 7.8 thou/uL (4.8-10.8)
[2019-02-10 06:42] LABS: #Lymphocytes 1.5 thou/uL (1.20-3.40); #Monocytes 0.9 thou/uL (0.11-0.59); #Neutrophils 5.4 thou/uL (1.40-6.50); %Basophils 0.2 % (0.0-1.0); %Eosinophils 0.6 % (0.0-10.0); %Lymphocytes 18.8 % (21.0-51.0); %Monocytes 11.8 % (0.0-10.0); %Neutrophils 68.7 % (42.0-75.0); Mean Platelet Volume 8.9 fL (7.4-10.4); Platelet Count 115 thou/uL (130-400); Platelet Morphology Comment Appears Decreased
[2019-02-10] MEDS ORDERED: Magnesium 2 GM/50 ML 2 GM in Premix Bag 1 BAG IVPB SCH (07:30)
[2019-02-10] MEDS ORDERED: Ferrous Sulfate 325 MG TAB PO SCH (08:00)
[2019-02-10] MEDS: Ferrous Sulfate 325 MG TAB PO SCH ×2 (08:35→17:55)
[2019-02-10] MEDS: Ascorbic Acid 500 mg Chewable Tablet PO SCH ×2 (08:35→21:36)
[2019-02-10] MEDS: Aspirin 81 mg Enteric Coated Tablet PO SCH ×2 (08:36→21:37)
[2019-02-10] MEDS: Polyethylene Glycol 3350 17 GM Packet PO SCH (08:36)
[2019-02-10] MEDS ORDERED: Cyclobenzaprine 10 MG TAB PO PRN (08:52)
[2019-02-10] MEDS: Gabapentin 100 MG CAP PO SCH ×3 (09:27→21:36)
--- NOTE | 2019-02-10 12:03 | PRG ---
DATE OF SERVICE: 02/10/2019 SUBJECTIVE: The patient remains on the telemetry floor. The patient is postoperative day #2 status post repair of his left intertrochanteric femur fracture. The patient reports he slept well overnight. The patient reports that his pain is well controlled unless he is moving around. The patient denies any chest pain, dizziness, or shortness of breath. The patient continues to have episodes of bigeminy on the monitoring analyst. The patient is tolerating a regular diet. OBJECTIVE: VITAL SIGNS: Pulse 90, respirations 18, SpO2 of 100% on room air, temperature 98.0, blood pressure 107/50. GENERAL: Elderly-appearing male, awake, alert, in no distress, hard of hearing. RESPIRATORY: Equal chest rise and fall. Bilateral breath sounds clear. CARDIAC: Regular rate. Frequent PVCs on monitoring analyst. No murmurs. ABDOMEN: Soft, nontender, and nondistended. EXTREMITIES: Moves all extremities. Distal pulses intact. Left hip dressing clean, dry, and intact. LABORATORY DATA: WBC 7.8, RBC 2.62, hemoglobin 8.6, hematocrit 25.5, platelets 115. Sodium 136, potassium 4.3, chloride 107, BUN 16, creatinine 1.03, estimated GFR 68, glucose 110, calcium 8.3, phosphorus 2.3, magnesium 1.9. DIAGNOSTIC STUDIES: There are no new diagnostics to review today. IMPRESSION: 1. Status post syncopal fall. 2. Left intertrochanteric femur fracture, postoperative day #2 repair. 3. Angus and bigeminy noted in the emergency room with continued intermittent bigeminy. 4. History of chronic hypotension, skin cancer, and recent pacemaker placement. PLAN: Continue regular diet as tolerated. We will replace magnesium. We will add iron and vitamin C as the patient is mildly anemic. We will move the patient to the surgical floor for continued physical and occupational therapy. The patient's bigeminy seems to be chronic in nature, and the patient is nonsymptomatic. The patient is pending placement to [facility]. Plan was discussed with the patient, who agrees. The patient was examined by Dr. Canchola during morning rounds. Job ID: [id number]
[2019-02-10] MEDS ORDERED: traMADol HCl 50 MG TAB PO PRN ×2 (19:05→19:06)
[2019-02-10] MEDS: Ibuprofen 600 MG TAB PO PRN (21:36)
[2019-02-10] MEDS: Tamsulosin HCl 0.4 MG CAP PO SCH (21:36)
--- NOTE | 2019-02-10 21:59 | PRG ---
DATE OF SERVICE: 02/10/2019 SUBJECTIVE: The patient was seen this evening, lying in bed with no signs of acute distress. Nursing reported he is confused and delirious, but cooperative overall and noncombative. OBJECTIVE: VITAL SIGNS: Temperature 98.5, pulse 56, respirations 16, oxygen saturation 100% on room air, blood pressure 124/64. GENERAL: Well-appearing elderly male, lying in bed with no signs of acute distress. PULMONARY: Equal chest rise and fall. No signs of acute respiratory distress. ASSESSMENT: 1. Status post syncopal fall from standing. 2. Left intertrochanteric femur fracture, status post repair. 3. Bradycardia with bigeminy in the emergency department, resolved. 4. History of hypotension, skin cancer, and pacemaker placement. PLAN: Continue current diet. We will unschedule the patient's tramadol as this maybe contributing to his acute delirium. We will keep the patient awake during the day and open the blinds and allow him to rest during the evening time in order to resolve the delirium. Continue physical and occupational therapy during the day. He is pending placement at [facility]. Job ID: [id number]
[2019-02-10] MEDS ORDERED: diphenhydrAMINE 50 MG/ML VIAL IVP SCH (23:15)
[2019-02-11] MEDS: Acetaminophen 500 MG TAB PO SCH ×4 (01:51→17:42)
[2019-02-11 06:08] LABS: #Lymphocytes 1.6 thou/uL (1.20-3.40); #Monocytes 0.9 thou/uL (0.11-0.59); #Neutrophils 5.7 thou/uL (1.40-6.50); %Basophils 0.4 % (0.0-1.0); %Eosinophils 0.4 % (0.0-10.0); %Lymphocytes 19.2 % (21.0-51.0); %Monocytes 10.4 % (0.0-10.0); %Neutrophils 69.6 % (42.0-75.0); Hemoglobin 8.1 g/dL (14.0-18.0); Mean Corpuscular HGB CONC 34.1 g/dL (32.0-36.0); Mean Corpuscular Hemoglobin 32.8 pg (27.0-31.0); Mean Corpuscular Volume 96.1 fL (78.0-98.0); Platelet Count 116 thou/uL (130-400); RBC Distribution Width 10.7 % (11.5-14.5); Red Blood Cell (RBC) Count 2.46 mill/uL (4.70-6.10); White Blood Cell (WBC) Count 8.2 thou/uL (4.8-10.8)
[2019-02-11] MEDS: Ferrous Sulfate 325 MG TAB PO SCH ×2 (09:03→17:42)
[2019-02-11] MEDS: Gabapentin 100 MG CAP PO SCH ×3 (09:03→21:10)
[2019-02-11] MEDS: Aspirin 81 mg Enteric Coated Tablet PO SCH ×2 (09:03→21:10)
[2019-02-11] MEDS: Polyethylene Glycol 3350 17 GM Packet PO SCH (09:03)
[2019-02-11] MEDS: Ascorbic Acid 500 mg Chewable Tablet PO SCH ×2 (09:03→21:10)
[2019-02-11] MEDS: Midodrine HCl 5 MG TAB PO SCH ×3 (09:03→18:43)
[2019-02-11] MEDS: Ibuprofen 600 MG TAB PO PRN ×2 (13:59→21:10)
--- NOTE | 2019-02-11 16:38 | PRG ---
DATE OF SERVICE: 02/11/2019 This is Mitzi Lisa NP dictating a report for Dr. Canchola. SUBJECTIVE: This is an 88-year-old gentleman, status post syncopal ground level fall. The patient is postop day #2 left intertrochanteric femur fracture repair with a TFN nail. The patient is on the surgical floor, awake, alert, and slightly confused at this time. The patient did have some confusion overnight. The patient's appetite has been diminished. The patient does report pain with movement and knee ambulation. OBJECTIVE: VITAL SIGNS: Temperature 98.3, pulse 100, respirations 20, SpO2 of 100% on room air, and blood pressure 134/72. GENERAL: Elderly gentleman, well-appearing, awake, alert, mildly confused, no acute distress. RESPIRATORY: Equal chest rise and fall, bilateral breath sounds clear. CARDIAC: Regular rate. No murmurs. ABDOMEN: Soft, nontender, nondistended. EXTREMITIES: Moves all extremities, left hip dressing is clean, dry, intact. No pedal edema. Distal pulses intact. LABORATORY DATA: WBC 8.2, RBC 2.46, hemoglobin 8.1, hematocrit 23.6, and platelets 116. DIAGNOSTICS: There are no new diagnostics to review today. IMPRESSION: 1. Status post syncopal fall. 2. Postoperative day #3, left intertrochanteric femur fracture, TFN nail. 3. Bradycardia with bigeminy, resolved. 4. History of chronic hypotension. 5. Skin cancer. 6. Recent pacemaker placement. PLAN: Continue regular diet as tolerated. We will start Ensure three times a day with meals as the patient's appetite has been decreased. We will continue iron and vitamin C. We will continue to have Physical and Occupational Therapy work with the patient more aggressively. We will attempt to have the patient up out of the bed during the day and increase his activity. The patient is pending placement to [place] [facility] bed. The patient was examined by Dr. Canchola during morning rounds. Job ID: [id number]
[2019-02-11] MEDS: Tamsulosin HCl 0.4 MG CAP PO SCH (21:10)
[2019-02-12] MEDS: Acetaminophen 500 MG TAB PO SCH ×4 (00:58→18:13)
--- NOTE | 2019-02-12 01:07 | PRG ---
DATE OF SERVICE: 02/11/2019 SUBJECTIVE: The patient was seen during the evening rounds. He was resting comfortably, lying on his right side with no signs of acute distress. Sitter was at the bedside. OBJECTIVE: VITAL SIGNS: Temperature 98.4, pulse 52, respirations 18, oxygen saturation 94% on room air, and blood pressure 130/67. GENERAL: Well-appearing elderly male, lying in bed with no signs of acute distress. PULMONARY: Equal chest rise and fall. No signs of acute respiratory distress. ASSESSMENT: 1. Status post syncopal fall. 2. Left intertrochanteric femur fracture, status post repair. 3. Bradycardia in the emergency department, resolved. 4. History of hypotension, skin cancer, and pacemaker. PLAN: Continue current diet and pain regimen. Continue physical and occupational therapy. Continue being very active during the day and trying to rest during the evening to help resolve the patient's acute delirium. He is pending placement at [facility]. Job ID: [id number] [facility]
[2019-02-12] MEDS: Senokot S 8.6-50 MG TAB PO SCH ×2 (09:01→21:37)
[2019-02-12] MEDS: Ascorbic Acid 500 mg Chewable Tablet PO SCH ×2 (09:01→21:37)
[2019-02-12] MEDS: Gabapentin 100 MG CAP PO SCH ×3 (09:01→21:37)
[2019-02-12] MEDS: Ferrous Sulfate 325 MG TAB PO SCH ×2 (09:01→16:27)
[2019-02-12] MEDS: Aspirin 81 mg Enteric Coated Tablet PO SCH ×2 (09:01→21:37)
[2019-02-12] MEDS: Midodrine HCl 5 MG TAB PO SCH ×3 (09:01→16:27)
[2019-02-12] MEDS: Polyethylene Glycol 3350 17 GM Packet PO SCH (09:05)
[2019-02-12] MEDS: Ibuprofen 600 MG TAB PO PRN ×2 (11:10→21:37)
--- NOTE | 2019-02-12 18:01 | PRG ---
DATE OF SERVICE: 02/12/2019 SUBJECTIVE: The patient remains on the surgical floor. The patient is postop day #3, status post left intertrochanteric femur fracture repair with a TFN. The patient is awake, alert and less confused this morning. The patient continues to have a diminished appetite. The patient's family is at bedside. The patient has improved since they have gotten him out of the room and opened up the blinds and let more sunlight in. The patient's pain has been well controlled. OBJECTIVE: VITAL SIGNS: Temperature 98.4, pulse 83, respirations 16, SpO2 of 93% on room air, and blood pressure 135/79. GENERAL: Well-appearing male, awake, and alert, no distress, sitting up in hospital bed. RESPIRATORY: Equal chest rise and fall, bilateral breath sounds clear, nonlabored. CARDIAC: Regular rate and regular rhythm. ABDOMEN: Soft, nontender, and nondistended. EXTREMITIES: Moves all extremities, left hip dressing is clean, dry, and intact. No pedal edema. LABORATORY DATA: There is no labs to evaluate today. DIAGNOSTICS: There are no new diagnostics to review. IMPRESSION: 1. Status post syncopal fall. 2. Postop day #4, left intertrochanteric femur fracture, trochanteric fixation nail. 3. Bradycardia with bigeminy, resolved. 4. History of chronic hypotension. 5. Skin cancer. 6. Recent pacemaker placement. PLAN: Continue regular diet as tolerated. We will supplement with Ensure Life 3 times a day. We will continue the patient's iron and vitamin C. We will continue to have Physical Therapy and Occupational Therapy work with the patient. The patient is encouraged to be up during the day and increase his activity. The patient is pending placement to [facility]. The patient was examined by Dr. Canchola during morning rounds. The plan was discussed with the patient's family, who agrees. Job ID: [id number]
[2019-02-12] MEDS: Tamsulosin HCl 0.4 MG CAP PO SCH (21:37)
[2019-02-12] MEDS: Bisacodyl 10 MG SUPP PR SCH (21:37)
--- NOTE | 2019-02-12 22:10 | PRG ---
DATE OF SERVICE: 02/12/2019 SUBJECTIVE: The patient was seen this evening during rounds. He is resting comfortably in bed and asleep. Nursing reported no acute events. OBJECTIVE: VITAL SIGNS: Temperature 98.1, pulse 82, respirations 16, oxygen saturation 93% on room air, and blood pressure 110/72. GENERAL: Well-appearing elderly male, lying in bed, asleep with no signs of acute respiratory distress. PULMONARY: Equal chest rise and fall. No signs of acute respiratory distress. ASSESSMENT: 1. Status post syncopal fall. 2. Left intertrochanteric femur fracture, status post repair. 3. Bradycardia in the emergency department, resolved. 4. History of hypotension, skin cancer, and pacemaker. PLAN: Continue current diet and pain regimen. Continue physical and occupational therapy. The patient to receive a suppository as he has not had a bowel movement yet. He is pending placement at [facility]. Job ID: [id number]
[2019-02-13] MEDS: Acetaminophen 500 MG TAB PO SCH ×4 (00:28→17:21)
[2019-02-13] MEDS: Ibuprofen 600 MG TAB PO PRN (04:50)
[2019-02-13] MEDS: Ascorbic Acid 500 mg Chewable Tablet PO SCH ×2 (08:57→20:27)
[2019-02-13] MEDS: Ferrous Sulfate 325 MG TAB PO SCH ×2 (08:57→17:21)
[2019-02-13] MEDS: Aspirin 81 mg Enteric Coated Tablet PO SCH ×2 (08:58→20:27)
[2019-02-13] MEDS: Gabapentin 100 MG CAP PO SCH ×3 (08:58→20:27)
[2019-02-13] MEDS: Midodrine HCl 5 MG TAB PO SCH ×3 (08:58→17:21)
[2019-02-13] MEDS: Polyethylene Glycol 3350 17 GM Packet PO SCH (08:58)
[2019-02-13] MEDS: Senokot S 8.6-50 MG TAB PO SCH ×2 (08:58→20:27)
[2019-02-13] MEDS ORDERED: Sodium Chloride 0.9% 500 ML IV SCH (12:00)
[2019-02-13 12:22] LABS: #Eosinphils 0.1 thou/uL (0.0-0.7); #Lymphocytes 1.2 thou/uL (1.20-3.40); #Monocytes 0.4 thou/uL (0.11-0.59); #Neutrophils 6.6 thou/uL (1.40-6.50); %Basophils 0.2 % (0.0-1.0); %Eosinophils 0.6 % (0.0-10.0); %Monocytes 5.1 % (0.0-10.0); %Neutrophils 80.2 % (42.0-75.0); Hemoglobin 7.8 g/dL (14.0-18.0); Mean Corpuscular HGB CONC 33.5 g/dL (32.0-36.0); Mean Corpuscular Hemoglobin 32.4 pg (27.0-31.0); Mean Corpuscular Volume 96.6 fL (78.0-98.0); Mean Platelet Volume 7.7 fL (7.4-10.4); Platelet Count 199 thou/uL (130-400); RBC Distribution Width 11.2 % (11.5-14.5); Red Blood Cell (RBC) Count 2.41 mill/uL (4.70-6.10); White Blood Cell (WBC) Count 8.3 thou/uL (4.8-10.8)
[2019-02-13 12:45] LABS: Anion Gap 8 mmol/L (10-20); BUN (Urea Nitrogen) 23 mg/dL (8.4-25.7); Calc. Creatinine Clearance 55 mL/min (70-130); Calcium 9.3 mg/dL (7.8-10.44); Carbon Dioxide 28 mmol/L (23-31); Chloride 105 mmol/L (98-107); Estimated GFR-MDRD 70; Glucose 132 mg/dL (83-110); Magnesium 2.1 mg/dL (1.6-2.6); Phosphorus 3.2 mg/dL (2.3-4.7); Potassium 4.3 mmol/L (3.5-5.1); Sodium 137 mmol/L (136-145)
[2019-02-13] MEDS ORDERED: Hydrocortisone Sod Succ/PF 100 mg/2 ml Vial IVP SCH (13:45)
--- NOTE | 2019-02-13 15:29 | PRG ---
DATE OF SERVICE: 02/13/2019 SUBJECTIVE: The patient is currently on the surgical floor. He is status post ground level fall due to syncope, in which he sustained a left intertrochanteric femur fracture. He is postop day 5 from this injury. He is currently awaiting placement. He is looking for acceptance to [facility]. Overnight, the patient had no issues. This morning, the patient had a tech, who has noted that while sitting in the chair, the patient looked like he was unresponsive and looking to the left. When the nurses came and assessed him, the patient was sitting and was responsive to verbal stimuli. When I arrived, the patient was asleep, but was easily awakened with verbal stimuli, followed commands, though it did appear that he was slightly hypotensive, there was no evidence of incontinence. The patient has stated that he "felt fine." The patient had no labs this morning. They were ordered as was a cortisol level, did show that the patient was anemic with a hemoglobin of 7.8 and cortisol of 13.8, consistent with adrenal insufficiency, possibly both of these may have attributed to what the tech witnessed. The patient does also have a history of orthostatic hypotension, which again may have been magnified by these two other issues. OBJECTIVE: VITAL SIGNS: Temperature is 98.2, heart rate is 76, blood pressure 108/43, respirations 16, oxygen saturation 92% on room air. GENERAL: The patient again is sleeping, but was awakened with verbal stimuli and would follow commands and respond appropriately. HEENT: Unremarkable LUNGS: Clear to auscultation. HEART: Irregularly irregular. ABDOMEN: Soft, flat, nontender with active bowel sounds. EXTREMITIES: Neurovascularly intact x4. LABORATORY FINDINGS: White blood cell count 8.3, hemoglobin 7.8, hematocrit 23.2, platelets 199. Sodium 137, potassium 4.3, chloride 105, CO2 of 28, BUN 23, creatinine 1.01, glucose 132, magnesium 2.1, phosphorus 3.2, cortisol 13.8. ASSESSMENT AND PLAN: 1. Status post syncopal fall. 2. Postoperative day #5, status post open reduction and internal fixation of left intertrochanteric femur fracture. 3. History of bradycardia with bigeminy, resolved. 4. History of chronic hypotension. 5. History of skin cancer. 6. History of recent pacemaker placement. 7. Acute blood loss anemia. 8. Adrenal insufficiency. Plan will be to transfuse 1 unit of packed red blood cells. We will give the patient 100 mg of hydrocortisone and then continue with 25 mg every 8 hours. We will continue to trend his hemoglobin and hematocrit and follow his urinary output. We are going to obtain an EKG to assess his rhythm at this time also. We will continue to work on placement. Job ID: [id number]
[2019-02-13] MEDS: Tamsulosin HCl 0.4 MG CAP PO SCH (20:27)
[2019-02-13] MEDS: Bisacodyl 10 MG SUPP PR SCH (21:57)
[2019-02-13] MEDS: Hydrocortisone Sod Succ/PF 100 mg/2 ml Vial IVP SCH (22:21)
[2019-02-14] MEDS: Acetaminophen 500 MG TAB PO SCH ×3 (00:38→12:54)
--- NOTE | 2019-02-14 03:28 | PRG ---
DATE OF SERVICE: 02/13/2019 Mr. Clinton is an 88-year-old male with status post syncope, fall in which he sustained left hip fracture. He underwent ORIF of left hip fracture, postop day #5. He has history of bradycardia with recent pacemaker, acute blood loss anemia. He has been transfused with 1 unit of blood, adrenal insufficiency stable. Currently, patient in stable, lying down in bed comfortable with no acute respiratory distress. Vital signs, heart rate is in the range of 100, blood pressure is improved to 110 to 150 systolic, but the patient reports he has been doing good. Pain is well controlled. He has one bowel movement today. Postop dressing of the left hip is clean, dry, and intact. Patient able to work with PT/OT. PLAN: Will be continue supportive care. Continue pain control. Continue DVT prophylaxis. Continue working with PT/OT. Anticipate placement in rehabilitation facility or [facility] facility. Job ID: [id number]
[2019-02-14] MEDS: Hydrocortisone Sod Succ/PF 100 mg/2 ml Vial IVP SCH ×2 (05:03→12:54)
[2019-02-14 05:53] LABS: #Monocytes 0.6 thou/uL (0.11-0.59); #Neutrophils 7.6 thou/uL (1.40-6.50); %Basophils 0.1 % (0.0-1.0); %Eosinophils 0.4 % (0.0-10.0); %Monocytes 6.1 % (0.0-10.0); %Neutrophils 74.3 % (42.0-75.0); Mean Corpuscular HGB CONC 34.4 g/dL (32.0-36.0); Mean Corpuscular Hemoglobin 33.5 pg (27.0-31.0); Mean Corpuscular Volume 97.5 fL (78.0-98.0); Mean Platelet Volume 7.8 fL (7.4-10.4); Platelet Count 225 thou/uL (130-400); RBC Distribution Width 11.7 % (11.5-14.5); Red Blood Cell (RBC) Count 2.69 mill/uL (4.70-6.10); White Blood Cell (WBC) Count 10.3 thou/uL (4.8-10.8)
[2019-02-14] MEDS: Ferrous Sulfate 325 MG TAB PO SCH (09:53)
[2019-02-14] MEDS: Polyethylene Glycol 3350 17 GM Packet PO SCH (09:53)
[2019-02-14] MEDS: Ascorbic Acid 500 mg Chewable Tablet PO SCH (09:53)
[2019-02-14] MEDS: Senokot S 8.6-50 MG TAB PO SCH (09:53)
[2019-02-14] MEDS: Aspirin 81 mg Enteric Coated Tablet PO SCH (09:53)
[2019-02-14] MEDS: Midodrine HCl 5 MG TAB PO SCH ×2 (09:54→12:54)
[2019-02-14] MEDS: Gabapentin 100 MG CAP PO SCH ×2 (09:54→15:32)
[2019-02-14 11:45] VITALS: BP 126/81; TEMP 98.1
[2019-02-14] MEDS: Ibuprofen 600 MG TAB PO PRN (15:31)
--- NOTE | 2019-02-14 17:01 | DIS ---
DATE OF ADMISSION: 02/08/2019 DATE OF DISCHARGE: 02/14/2019 ADMISSION DIAGNOSES: 1. Status post syncopal episode, a ground level fall. 2. Left intertrochanteric femur fracture. 3. Bradycardia. 4. History of orthostatic hypotension, squamous cell carcinoma, BPH, and recent dual-chamber pacemaker insertion. CONSULTATIONS: 1. Cardiology, Dr. Yusuf. 2. Orthopedics, Dr. Rawls. PROCEDURES: Left intertrochanteric femur fracture, TFN nail. HOSPITAL COURSE: The patient is an 88-year-old man with a known history of orthostatic hypotension and syncope, who had a ground level fall. He was brought to the emergency department and underwent evaluation and examination and was noted to have the above injuries. He did have his pacemaker interrogated, and it did not show any abnormalities. The patient underwent his above procedure, which he tolerated well. He did have an episode of acute blood loss anemia requiring 1 unit of packed red blood cells and also had low cortisol levels, presumed adrenal insufficient. The patient was transfused and received hydrocortisone, which markedly improved his blood pressure. At the time of discharge, the patient was progressing with physical and occupational therapy. He was tolerating a diet. His pain was controlled, and his bowel function had returned. The patient will follow up with Dr. Rawls in 14 days from his surgery. He is to follow up with his quantitative strategy analyst and primary care provider and may follow up with the Trauma Clinic as needed. The patient was discharged to [facility]. Job ID: [id number]
--- NOTE | 2019-02-15 13:14 | EKG ---
Test Reason : Blood Pressure : / mmHG Vent. Rate : 103 BPM Atrial Rate : 103 BPM P-R Int : 166 ms QRS Dur : 092 ms QT Int : 362 ms P-R-T Axes : 050 024 094 degrees QTc Int : 474 ms Sinus tachycardia with frequent Premature ventricular complexes Nonspecific T wave abnormality Abnormal ECG Confirmed by PATRICIA DAVIDSON ([id number]) on 02/15/2019 1:13:55 PM Referred By: PIEDAD Confirmed By:PATRICIA DAVIDSON
== END 2019-02-14 15:50 | DRG 481 ==
LOC: ERS 14:28 → 2NO 17:10 → SURG B 02-10 13:29
PROVIDERS: ADMIT Specialist; ATTEND Specialist
PROC: 0QH736Z Insertion of Intramedullary Internal Fixation Device into Left Upper Femur, Percutaneous Approach (ICD-10-PCS; principal; 2019-02-09)
PROC: 30233N1 Transfusion of Nonautologous Red Blood Cells into Peripheral Vein, Percutaneous Approach (ICD-10-PCS; 2019-02-13)
DX: S72.142A Displaced intertrochanteric fracture of left femur, initial encounter for closed fracture (principal); D62 Acute posthemorrhagic anemia; E27.40 Unspecified adrenocortical insufficiency; R00.1 Bradycardia, unspecified; N40.0 Benign prostatic hyperplasia without lower urinary tract symptoms; Z95.0 Presence of cardiac pacemaker; C76.0 Malignant neoplasm of head, face and neck; Z87.891 Personal history of nicotine dependence; I95.9 Hypotension, unspecified; R41.0 Disorientation, unspecified; W18.39XA Other fall on same level, initial encounter; Y93.89 Activity, other specified; Y92.098 Other place in other non-institutional residence as the place of occurrence of the external cause
CPT/HCPCS: 36415; 36430; 70450; 71045; 72125; 72170; 76000; 80048; 80053; 81001; 82533; 83735; 84100; 84484; 85025; 85610; 85730; 86850; 86900; 86901; 93005; 93010; 94760; C1713; G0390; J0670; J0690; J1200; J1720; J2270; J2704; J3010; J3475; P9016

== ENCOUNTER 2019-03-13 18:14 | Inpatient (IN) | payer MEDICARE, BC ==
[2019-03-13] MEDS ORDERED: Acetaminophen/Codeine 30-300mg Tablet PO PRN ×2 (18:23)
[2019-03-13] MEDS ORDERED: Ondansetron PF 4 MG/2 ML Vial IV PRN (18:23)
[2019-03-13] MEDS ORDERED: traMADol HCl 50 MG TAB PO PRN ×2 (18:28)
[2019-03-13] MEDS ORDERED: Communication Order-Pharmacy FS PRN (18:30)
--- NOTE | 2019-03-13 19:35 | HP ---
BRIEF HISTORY OF PRESENT ILLNESS: Mr. Clinton is an 88-year-old gentleman, who was transferred from [place] following a ground level fall. On February 08, 2019, the patient also had a ground level fall, in which he sustained an intertrochanteric femur fracture. On February 09, 2019, he underwent a TFN procedure to stabilize this fracture. After a short hospital stay, he was transferred to the [facility], where he was a swing bed patient at [place]. He reports that yesterday he stood up to go to the bathroom, accidentally peed on the floor, and bent down to clean up after himself when he slipped and fell sustaining a new trauma to this left hip. Today, x-rays were obtained and these demonstrated a TFN device, which had cut out of the femoral head. As such, the patient now transferred back to [facility] for orthopedic admission, anticipated revision of hardware. Of note, the patient has had multiple falls recently as well as syncopal episodes. 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 The patient does have a dual-chamber pacemaker, that was placed on December [address] Yusuf. At this time, he is admitted to the Orthopedic Trauma Service for revision of his hardware. PAST MEDICAL HISTORY: Remarkable for; 1. BPH. 2. History of squamous cell carcinoma of the face, as well as orthostatic hypertension. PAST SURGICAL HISTORY: Includes; 1. Pacemaker in November 2018. 2. Open reduction and internal fixation of the left hip fracture in January 2019, as well as surgery for squamous cell carcinoma, as well as cataract surgery. MEDICATIONS: Include Flomax and midodrine, as well as multiple stool softeners. ALLERGIES: NONE KNOWN. SOCIAL HISTORY: The patient lived alone prior to his fall in January. Recently, he has been in a skilled bed. He does have a past history of smoking, but quit as a teenager. He denies alcohol or drug use. FAMILY HISTORY: Noncontributory. REVIEW OF SYSTEMS: Denies recent fevers, chills, or sweats. Denies current chest pain or shortness of breath. Denies numbness or tingling in the lower extremity. PHYSICAL EXAMINATION: VITAL SIGNS: Temperature 98.1, heart rate of 96, respiratory rate of 20, and blood pressure of 158/88. The patient is examined in his hospital bed in [place]. GENERAL: He is a well-appearing, elderly gentleman, who is a bit hard of hearing, but does appear comfortable at rest. HEENT: Atraumatic and normocephalic. He does have well-healed scars from previous squamous cell carcinoma surgery. NECK: Nontender. CHEST: Remarkable for clear breath sounds bilaterally with no shortness of breath. HEART: Shows a regular rate and rhythm to my examination, but with a 2/6 murmur. Chest wall is nontender. ABDOMEN: Soft, flat, nontender. PELVIS: Stable to compression and nonpainful. EXTREMITIES: Remarkable for left lower extremity with no external rotation or obvious shortening. He does have groin pain with logrolling of the thigh. Distal sensation is subjectively intact. LABORATORY DATA: CBC, complete metabolic panel, and INR pending as is a urinalysis and EKG. IMAGING STUDIES: X-rays, plain films from [place] are remarkable for two-view hip with a TFN device, which is now cut out of the femoral head and is perched on the dome of the acetabulum. ASSESSMENT: An 88-year-old gentleman with recurrent falls, now with fall, resulting in failure of his TFN device. PLAN: At this time, this TFN device will need to be revised and we will propose revising it to a hemiarthroplasty. I have discussed with the patient about risks and benefits of this procedure. Risks include, but are not limited to, bleeding, infection, nerve injury, DVT, PE, loss of limb or life, as well as dislocation. The patient appears to understand and the surgery will be tentatively scheduled for to allow us to have appropriate equipment on hand for the surgery. In the meantime, he will have a regular diet, but will be bedrest. Job ID: [id number]
[2019-03-13] MEDS ORDERED: Acetaminophen 500 MG TAB PO PRN (23:08)
[2019-03-14 02:40] VITALS: BMI 19.3
[2019-03-14 04:00] LABS: Bacteria/HPF None Seen HPF (None Seen); Bilirubin Negative (Negative); Blood, Urine Negative (Negative); Clarity Clear (Clear); Glucose, Urine (Dipstick) Normal (Negative); Leukocyte Negative Leu/uL (Negative); Nitrite Negative (Negative); Protein, Urine (Dipstick) Negative (Neg-Trace); RBC/HPF 0-3 HPF (0-3); Squamous Epithelial None Seen HPF (0-3); Urobilinogen Normal mg/dL (Less than 2); WBC/HPF 0-3 HPF (0-3)
[2019-03-14 05:39] LABS: INR-International Normal Ratio 1.2; Prothrombin Time 15.3 SEC (12.0-14.7)
[2019-03-14 05:40] LABS: PTT 30.6 SEC (22.9-36.1)
[2019-03-14 05:43] LABS: #Eosinphils 0.2 thou/uL (0.0-0.7); #Lymphocytes 1.3 thou/uL (1.20-3.40); #Monocytes 0.7 thou/uL (0.11-0.59); #Neutrophils 3.7 thou/uL (1.40-6.50); %Basophils 0.6 % (0.0-1.0); %Eosinophils 2.6 % (0.0-10.0); %Lymphocytes 21.9 % (21.0-51.0); %Monocytes 12.1 % (0.0-10.0); %Neutrophils 62.7 % (42.0-75.0); Hemoglobin 10.7 g/dL (14.0-18.0); Mean Corpuscular Hemoglobin 32.9 pg (27.0-31.0); Mean Platelet Volume 6.6 fL (7.4-10.4); Platelet Count 300 thou/uL (130-400); RBC Distribution Width 13.7 % (11.5-14.5); Red Blood Cell (RBC) Count 3.27 mill/uL (4.70-6.10); White Blood Cell (WBC) Count 5.9 thou/uL (4.8-10.8)
[2019-03-14 05:58] LABS: ALT (SGPT) 9 U/L (8-55); AST (SGOT) 14 U/L (5-34); Albumin 3.4 g/dL (3.4-4.8); Alkaline Phosphatase 133 U/L (40-110); Anion Gap 10 mmol/L (10-20); BUN (Urea Nitrogen) 11 mg/dL (8.4-25.7); Bilirubin, Total 0.7 mg/dL (0.2-1.2); Calc. Creatinine Clearance 71 mL/min (70-130); Carbon Dioxide 25 mmol/L (23-31); Chloride 104 mmol/L (98-107); Estimated GFR-MDRD Greater than 90; Globulin 2.3 g/dL (2.4-3.5); Glucose 88 mg/dL (83-110); Potassium 3.9 mmol/L (3.5-5.1); Protein, Total 5.7 g/dL (5.8-8.1); Sodium 135 mmol/L (136-145)
[2019-03-14] MEDS ORDERED: TETANUS AND DIPHTHERIA TOX/PF 0.5 ML DISP.SYRIN IM SCH (09:00)
[2019-03-14] MEDS ORDERED: CEFAZOLIN 2 GM in Premix Bag 1 BAG IVPB SCH (14:30)
[2019-03-15] MEDS ORDERED: Lidocaine 1% PF 5 ML VIAL ONE (10:26)
[2019-03-15] MEDS ORDERED: Lidocaine 1.5% w/Epi 1:200K 30 ML VIAL (Epid Use) ONE (10:26)
[2019-03-15] MEDS ORDERED: PROPOFOL 200 MG/20 ML VIAL ONE (10:26)
[2019-03-15] MEDS ORDERED: Rocuronium Bromide 10 MG/ML (10ML VIAL) ONE (10:26)
[2019-03-15] MEDS ORDERED: PHENYLEPHRINE-NS 100 MCG/ML 10 ML SYRINGE ONE (10:26)
[2019-03-15] MEDS ORDERED: Glycopyrrolate 0.2 MG/ML 5 ML SYRINGE ONE (10:26)
[2019-03-15] MEDS ORDERED: Promethazine HCl 25 MG SUPP PR PRN (13:00)
[2019-03-15] MEDS ORDERED: Hydrocerin (Eucerin) Cream 120 gm Jar TOP PRN (13:00)
[2019-03-15] MEDS ORDERED: Naloxone HCl 0.4 mg/ml Vial IV PRN (13:00)
[2019-03-15] MEDS ORDERED: diphenhydrAMINE 50 MG/ML VIAL IVP PRN (13:00)
[2019-03-15] MEDS ORDERED: Ondansetron PF 4 MG/2 ML Vial IVP PRN (13:00)
[2019-03-15] MEDS ORDERED: Promethazine HCl 25 MG/ML VIAL IM PRN ×2 (13:00→16:58)
[2019-03-15] MEDS ORDERED: Zolpidem Tartrate 5 MG TAB PO PRN (13:00)
[2019-03-15] MEDS ORDERED: Bupivacaine 0.25% 10 ML VIAL EPIDURAL PRN (13:00)
[2019-03-15] MEDS ORDERED: diphenhydrAMINE 50 MG/ML VIAL IM PRN (13:00)
[2019-03-15] MEDS ORDERED: Naloxone HCl 0.4 mg/ml Vial IVP PRN (13:00)
[2019-03-15] MEDS ORDERED: Phenylephrine HCL 10 MG/ML VIAL ONE (14:00)
[2019-03-15] MEDS ORDERED: Bupivacaine 0.25% HCL 30 ML VIAL ONE (16:33)
[2019-03-15] MEDS ORDERED: Bupivacaine PF 0.5% 30 ML VIAL ONE (16:38)
[2019-03-15] MEDS ORDERED: ePHEDrine/0.9% NaCl/PF SYRINGE 50 mg/10 ml ONE (16:47)
[2019-03-15] MEDS ORDERED: Calcium Chloride 1 GM/10 ML Abboject SYRINGE ONE (16:48)
[2019-03-15] MEDS ORDERED: Promethazine HCl 25 MG/ML VIAL SLOW IVP PRN (16:58)
[2019-03-15] MEDS ORDERED: Ondansetron HCl/PF 4 MG/2 ML Vial IVP PRN (16:58)
--- NOTE | 2019-03-15 17:18 | RAD ---
Exam:2 views left hip HISTORY: Postop. Fracture. COMPARISON: 03/13/2019 FINDINGS: Interval removal of a gamma nail and intramedullary sydnee. Interval placement of a left hip p rosthesis. Fracture lucency is noted. Expected postoperative changes in the soft tissue. IMPRESSION: Postoperative changes compatible with replacement of internal fixation hardware with a le ft hip prosthesis. Transcribed Date/Time: 03/15/2019 6:16 PM
[2019-03-15 18:10] LABS: Hemoglobin 10.6 g/dL (14.0-18.0)
[2019-03-15] MEDS: Acetaminophen 500 MG TAB PO SCH ×2 (18:49→18:55)
[2019-03-15] MEDS: Ketorolac Tromethamine 30 MG/ML VIAL IVP SCH (18:55)
[2019-03-15] MEDS: Sodium Chloride 0.9% 1,000 ML IV SCH (20:15)
[2019-03-15] MEDS: CEFAZOLIN 2 GM in Premix Bag 1 BAG IVPB SCH (21:11)
[2019-03-15] MEDS: Aspirin 81 mg Enteric Coated Tablet PO SCH (21:11)
[2019-03-16] MEDS: Ketorolac Tromethamine 30 MG/ML VIAL IVP SCH ×4 (00:01→17:05)
[2019-03-16] MEDS: Acetaminophen 500 MG TAB PO SCH ×4 (00:01→17:04)
--- NOTE | 2019-03-16 00:14 | OP ---
DATE OF PROCEDURE: 03/15/2019 PREOPERATIVE DIAGNOSIS: Failed left intertrochanteric femur fracture fixation with cut out of femoral head. POSTOPERATIVE DIAGNOSIS: Failed left intertrochanteric femur fracture fixation with cut out of femoral head. PROCEDURES PERFORMED: 1. Left hip hemiarthroplasty. 2. Removal of hardware, left hip. ANESTHESIA: General. KNITTED GARMENT FINISHER: Zac. IMPLANTS: DePuy system was used with a size 8 cemented [place] stem, a 28 x 57 Bipolar cup and a +1.5 Articul/ruba femoral head. SPECIMEN: Explanted TFNA. COMPLICATIONS: None. DRAINS: None. BRIEF HISTORY OF PRESENT ILLNESS: Mr. Clinton is a pleasant 88-year-old gentleman, who is now 1-month status post left comminuted intertrochanteric femur fracture. This fracture was treated with a TFNA device. The patient had an uneventful hospital course; however, on the 13 of March while at home, he slipped and fell and sustained a new trauma to this left hip with the hip screw now cutting out through the femoral head. After discussion with the patient including risks and benefits, we decided to proceed with removal of this TFNA and revision to a hemiarthroplasty. Informed consent has been obtained. I believe all questions have been answered. DESCRIPTION OF PROCEDURE: The patient was brought to the operating room and a time-out performed followed by induction of general anesthesia. Next, the patient was positioned in a right lateral decubitus position and a sterile prep and drape was performed in the left lower extremity. Next, a curvilinear incision was made centered over the greater trochanter and incorporating the scar from his prior surgery. After skin was sharply incised, dissection was carried down bluntly exposing the tensor fascia and fascia cathy. This structure was incised in line with the skin incision and then a Charnley retractor placed in the wound. Next, palpation through the abductor muscles was performed until the top of the nail could be palpated. Blunt dissection was then carried down to this TFNA nail. The screwdriver was inserted down the nail and the locking mechanism disengaged to allow for removal of the sliding hip screw. The distal skin incision from his hardware placement was then opened and the distal cross-lock screw removed as was the sliding hip screw without difficulty. At the completion of this, the nail was then removed from the hip. Using the same proximal incision, an elevator was passed under the abductors exposing the piriformis and superior and inferior gemelli. These structures were released from the posterior aspect of the proximal femur, tagged and reflected posteriorly, revealing the underlying hip capsule. The hip capsule was then opened with a T-capsulotomy with the leaflets tagged for eventual closure. At this point, the femoral head was then dislocated. A femoral neck cut was made in a relatively standard position. Once this cut was performed, there was found to be some reasonable integrity of the lesser trochanter with early healing around the calcar region. As such, a T-handle awl was then passed down the canal and then progressive T-handle awl was passed down the canal up to a size 8, which was the largest available. Next, broaching was started at size 4 and continued up to size 8 and then, a trial reduction performed that showed reasonable leg length mosque with a standard head. The trial was then removed and the proximal femur thoroughly irrigated with Pulsavac. A cement restrictor was then placed. The cement mixing was then performed and then a size 8 stem was cemented in place. Once the cement had fully cured, excess cement removed and then the +1.5 head with bipolar cup was applied to the stem and the hip reduced. There was found to be relatively good stability and what was felt to be normalization of leg lengths. The wound again irrigated with Pulsavac and then closure performed. #1 Vicryl was used for the joint capsule along with reattachment of the external rotators, #1 Vicryl also used for the fascia cathy and tensor fascia, 2-0 Vicryl was then used subcutaneously and shara for the skin. Xeroform gauze and tape dressing were applied to the thigh and then the patient was transferred to recovery room in stable condition. There were no complications. The patient tolerated the procedure well. Job ID: [id number]
[2019-03-16] MEDS: Sodium Chloride 0.9% 1,000 ML IV SCH ×4 (01:40→21:53)
[2019-03-16 05:44] LABS: #Lymphocytes 0.8 thou/uL (1.20-3.40); #Monocytes 1.1 thou/uL (0.11-0.59); #Neutrophils 7.3 thou/uL (1.40-6.50); %Eosinophils 0.2 % (0.0-10.0); %Lymphocytes 8.8 % (21.0-51.0); %Monocytes 11.7 % (0.0-10.0); %Neutrophils 79.3 % (42.0-75.0); Hemoglobin 8.9 g/dL (14.0-18.0); Mean Corpuscular HGB CONC 32.7 g/dL (32.0-36.0); Mean Corpuscular Hemoglobin 33.3 pg (27.0-31.0); Mean Platelet Volume 6.9 fL (7.4-10.4); Platelet Count 251 thou/uL (130-400); RBC Distribution Width 13.1 % (11.5-14.5); Red Blood Cell (RBC) Count 2.66 mill/uL (4.70-6.10); White Blood Cell (WBC) Count 9.2 thou/uL (4.8-10.8)
[2019-03-16] MEDS: CEFAZOLIN 2 GM in Premix Bag 1 BAG IVPB SCH ×2 (06:44→14:38)
[2019-03-16] MEDS: Aspirin 81 mg Enteric Coated Tablet PO SCH ×2 (08:54→20:46)
[2019-03-16] MEDS: Midodrine HCl 5 MG TAB PO SCH ×2 (14:39→20:46)
[2019-03-16] MEDS: Ferrous Sulfate 325 MG TAB PO SCH (17:04)
[2019-03-16] MEDS: Bupivacaine 10 ML in Sodium Chloride 0.9% 90 ML EPIDURAL SCH (17:46)
[2019-03-16] MEDS: Ascorbic Acid 500 mg Chewable Tablet PO SCH (20:46)
[2019-03-16] MEDS: Tamsulosin HCl 0.4 MG CAP PO SCH (20:46)
[2019-03-17] MEDS: Acetaminophen 500 MG TAB PO SCH ×5 (00:21→23:31)
[2019-03-17] MEDS: Ketorolac Tromethamine 30 MG/ML VIAL IVP SCH ×3 (00:21→11:50)
[2019-03-17 05:11] LABS: #Eosinphils 0.1 thou/uL (0.0-0.7); #Lymphocytes 1.5 thou/uL (1.20-3.40); #Monocytes 1.1 thou/uL (0.11-0.59); #Neutrophils 7.2 thou/uL (1.40-6.50); %Basophils 0.2 % (0.0-1.0); %Eosinophils 0.6 % (0.0-10.0); %Lymphocytes 14.9 % (21.0-51.0); %Monocytes 11.5 % (0.0-10.0); %Neutrophils 72.8 % (42.0-75.0); Hemoglobin 7.9 g/dL (14.0-18.0); Mean Corpuscular HGB CONC 32.4 g/dL (32.0-36.0); Mean Corpuscular Hemoglobin 33.6 pg (27.0-31.0); Mean Platelet Volume 6.5 fL (7.4-10.4); Platelet Count 214 thou/uL (130-400); RBC Distribution Width 13.2 % (11.5-14.5); Red Blood Cell (RBC) Count 2.34 mill/uL (4.70-6.10); White Blood Cell (WBC) Count 9.9 thou/uL (4.8-10.8)
[2019-03-17] MEDS: Sodium Chloride 0.9% 1,000 ML IV SCH ×3 (05:37→23:32)
[2019-03-17] MEDS: Ascorbic Acid 500 mg Chewable Tablet PO SCH ×2 (08:22→19:57)
[2019-03-17] MEDS: Aspirin 81 mg Enteric Coated Tablet PO SCH ×2 (08:22→19:57)
[2019-03-17] MEDS: Midodrine HCl 5 MG TAB PO SCH ×3 (08:22→19:57)
[2019-03-17] MEDS: Ferrous Sulfate 325 MG TAB PO SCH ×2 (08:22→15:58)
[2019-03-17] MEDS: Bupivacaine 10 ML in Sodium Chloride 0.9% 90 ML EPIDURAL SCH (18:17)
[2019-03-17] MEDS: Tamsulosin HCl 0.4 MG CAP PO SCH (19:57)
[2019-03-17] MEDS ORDERED: Ibuprofen 600 MG TAB PO PRN (20:00)
[2019-03-18] MEDS: Acetaminophen 500 MG TAB PO SCH ×2 (06:35→12:04)
[2019-03-18] MEDS: Ferrous Sulfate 325 MG TAB PO SCH ×2 (07:44→16:05)
[2019-03-18] MEDS: Sodium Chloride 0.9% 1,000 ML IV SCH ×2 (07:44→12:04)
[2019-03-18] MEDS: Ascorbic Acid 500 mg Chewable Tablet PO SCH ×2 (07:44→20:30)
[2019-03-18] MEDS: Aspirin 81 mg Enteric Coated Tablet PO SCH ×2 (07:44→20:30)
[2019-03-18] MEDS: Midodrine HCl 5 MG TAB PO SCH ×3 (07:47→21:39)
[2019-03-18] MEDS: Bupivacaine 10 ML in Sodium Chloride 0.9% 90 ML EPIDURAL SCH (18:07)
[2019-03-18] MEDS: Tamsulosin HCl 0.4 MG CAP PO SCH (20:30)
[2019-03-18] MEDS: diphenhydrAMINE 25 MG CAP PO PRN (22:54)
[2019-03-18] MEDS: Acetaminophen 500 MG TAB PO PRN (22:54)
[2019-03-19 00:07] VITALS: BP 147/60
[2019-03-19 01:57] LABS: Actual Bicarbonate (HCO3a) 20.2 mEq/L (22-28); Base Excess (BEa) -1.3 mEq/L (-2.0 to +3.0); Calcium, Ionized 1.19 mmol/L (1.12-1.30); Carboxyhemoglobin (COHb) 1.4 gm% (0.0-3.0); Hemoglobin (Hb) 8.9 g/dL (14.0-18.0); O2 Tension (PaO2) 298.4 mmHg (> 60.0)
[2019-03-19] MEDS ORDERED: Furosemide 40 MG/4 ML VIAL ONE (01:57)
[2019-03-19 02:05] LABS: Hemoglobin 8.7 g/dL (14.0-18.0); Mean Corpuscular HGB CONC 32.3 g/dL (32.0-36.0); Mean Corpuscular Hemoglobin 33.6 pg (27.0-31.0); Mean Platelet Volume 6.7 fL (7.4-10.4); Platelet Count 314 thou/uL (130-400); RBC Distribution Width 12.9 % (11.5-14.5); White Blood Cell (WBC) Count 5.9 thou/uL (4.8-10.8)
[2019-03-19] MEDS ORDERED: Enoxaparin Sodium 40 MG/0.4 ML SYRINGE SC SCH ×3 (02:15→09:00)
[2019-03-19 02:22] LABS: Band 2 % (5-11); Lymphocytes 18 % (21-51); MDiff Complete? YES; Monocytes 2 % (0-10); Neutrophil 78 % (42-75); Platelet Morphology Comment Appears Adequate
[2019-03-19 02:25] LABS: ALT (SGPT) 10 U/L (8-55); AST (SGOT) 30 U/L (5-34); Alkaline Phosphatase 106 U/L (40-110); Anion Gap 11 mmol/L (10-20); BUN (Urea Nitrogen) 12 mg/dL (8.4-25.7); Bilirubin, Total 1.2 mg/dL (0.2-1.2); Calc. Creatinine Clearance 76 mL/min (70-130); Calcium 8.6 mg/dL (7.8-10.44); Carbon Dioxide 22 mmol/L (23-31); Chloride 105 mmol/L (98-107); Estimated GFR-MDRD Greater than 90; Globulin 2.2 g/dL (2.4-3.5); Glucose 140 mg/dL (83-110); Phosphorus 2.2 mg/dL (2.3-4.7); Potassium 3.8 mmol/L (3.5-5.1); Protein, Total 5.2 g/dL (5.8-8.1); Sodium 134 mmol/L (136-145)
[2019-03-19 02:31] LABS: Anion Gap 12 mmol/L (10-20); BUN (Urea Nitrogen) 12 mg/dL (8.4-25.7); Calc. Creatinine Clearance 79 mL/min (70-130); Calcium 8.6 mg/dL (7.8-10.44); Carbon Dioxide 22 mmol/L (23-31); Chloride 105 mmol/L (98-107); Estimated GFR-MDRD Greater than 90; Glucose 140 mg/dL (83-110); Magnesium 1.6 mg/dL (1.6-2.6); Potassium 3.8 mmol/L (3.5-5.1); Sodium 135 mmol/L (136-145)
[2019-03-19] MEDS ORDERED: Digoxin 0.5 MG/2 ML AMP SLOW IVP SCH (02:45)
[2019-03-19 02:48] LABS: pH, Arterial 7.55 (7.35-7.45)
[2019-03-19 02:49] LABS: CO2 Tension 23.5 mmHg (35.0-45.0); Puncture Site L RADIAL
[2019-03-19 02:50] LABS: ALV-art Gradient 385.225 (0-20)
[2019-03-19] MEDS: Sodium Chloride 0.9% 1,000 ML IV SCH (02:54)
[2019-03-19] MEDS ORDERED: Sodium Chloride 0.9% 500 ML IVPB SCH (03:15)
[2019-03-19 03:36] LABS: Troponin I 0.018 ng/mL (< 0.028)
[2019-03-19] MEDS ORDERED: Sodium Chloride 0.9% 500 ML IV SCH (03:45)
--- NOTE | 2019-03-19 04:15 | CON ---
DATE OF CONSULTATION: 03/19/2019 PRIMARY CARE PROVIDER: Shun Sheldon DO REASON FOR CONSULTATION: Chest pain, shortness of breath. HISTORY OF PRESENT ILLNESS: This is an 88-year-old male, who was admitted on 03/15/2019 by the Orthopedic Surgery Service after apparently sustaining a fall after recent left comminuted intertrochanteric femur fracture, status post repair with TFNA device. The patient underwent acute rehabilitation, apparently, returning home, where he sustained another fall displacing the hip screw. The patient was evaluated by Orthopedic Surgery Service and underwent a left hip hemiarthroplasty and removal of hardware on 03/15/2019. The patient has been monitored postoperatively on the surgical nix when nursing reported the patient complaining of increased shortness of breath and chest pain. The patient became increasingly short of breath and hypoxic, placed on nasal cannula, transitioning to a non-rebreather mask. The patient's O2 sats increased to the upper 80% range, at which point, the patient was transferred to the Critical Care Unit and placed on BiPAP noninvasive mechanical ventilation. Chest imaging was performed showing mild pulmonary edema and chronic changes. The patient was also noted with atrial fibrillation on telemetry monitoring with variable rate in the mid one teens to low 120s. The patient complained of shortness of breath, but no localization of any pain. PAST MEDICAL HISTORY: 1. Left intertrochanteric femur fracture, status post open reduction and internal fixation with subsequent fall. 2. Orthostatic hypotension, treated with midodrine. 3. Symptomatic bradycardia, status post pacemaker placement. 4. Benign prostatic hypertrophy. 5. Diastolic dysfunction with preserved ejection fraction of 55%. 6. Squamous cell carcinoma, status post resection. PAST SURGICAL HISTORY: 1. Status post left intertrochanteric femur fracture with TFN nail. 2. Status post left hip hemiarthroplasty, 03/15/2019. 3. Status post squamous cell carcinoma removal. 4. Status post dual chamber pacemaker placement, November 2018. 5. Status post cataract removal. CURRENT MEDICATIONS: 1. Midodrine 10 mg p.o. t.i.d. 2. Tamsulosin 0.4 mg p.o. at bedtime. 3. Vitamin C 500 mg p.o. b.i.d. 4. Enteric-coated aspirin 81 mg p.o. b.i.d. 5. Ferrous sulfate 325 mg p.o. b.i.d. ALLERGIES: TO GABAPENTIN, MIRTAZAPINE, TRAMADOL. FAMILY HISTORY: Positive for hypertension. SOCIAL HISTORY: He smokes up to 2 packs of cigarettes daily over 70 years, cutting down to half a pack daily. No alcohol or illicit drug use. . History of multiple falls. REVIEW OF SYSTEMS: Unobtainable as the patient is on current BiPAP noninvasive mechanical ventilation. PHYSICAL EXAMINATION: VITAL SIGNS: Currently, blood pressure 119/60, pulse 120, respiratory rate 45, temperature 98.9 degrees Fahrenheit, O2 saturation 99% on BiPAP noninvasive mechanical ventilation. GENERAL APPEARANCE: This is an 88-year-old male, alert, nods to questions and states few word sentences, in moderate to severe respiratory distress. HEENT: Pupils are equal, round, reactive to light and accommodation. Extraocular muscles are intact. No scleral icterus. No conjunctival injection. Nares patent. OP is clear. BiPAP face mask in place. NECK: Supple. No cervical adenopathy. No thyromegaly. No carotid bruits. No JVD appreciated. Cervical spine with full active and passive range of motion. No meningeal signs noted. CHEST: Diminished breath sounds bilaterally with scattered rhonchi. CARDIOVASCULAR: S1, S2 with irregular rate and rhythm. Distant heart sounds. Left upper chest wall with pacemaker device in place. ABDOMEN: Firm, rounded. Bowel sounds are positive in all 4 quadrants. No palpable mass. No rebound or guarding appreciated. EXTREMITIES: Warm and dry with fair turgor. No clubbing, cyanosis, or asymmetric edema appreciated. Pulses palpable distally at the dorsalis pedis, posterior tibial, and popliteal arteries bilaterally. Capillary refill less than 2 seconds. Left hip with postsurgical changes noted. : Bolanos catheter in place with denise urine in the Bolnaos bag. NEUROLOGIC: Cranial nerves 2 through 12 are grossly intact. No focal or lateralizing signs noted. Not observed ambulatory during this exam. PERTINENT LABORATORY AND X-RAY FINDINGS: Sodium 134, potassium 3.8, chloride 105, CO2 of 22, BUN 12, creatinine 0.66, glucose 140, calcium 8.6, phosphorus 2.2, magnesium 1.6. LFTs within normal limits. BNP 411, previously 393 on 03/05/2019. CBC showed a white blood cell count of 5.9, hemoglobin 8.7, hematocrit 27, MCV 104, platelet count 314, with 78% neutrophils. Portable chest x-ray dated 03/19/2019 by my interpretation shows bilateral pleural effusions, right greater than left, increased pulmonary markings and edema bilaterally. Left upper chest wall dual chamber pacemaker device in place. EKG dated 03/19/2019 by my interpretation shows atrial fibrillation with heart rates in the 110s. ABG showed a pH of 7.55, pCO2 of 25, and PO2 of 240. ASSESSMENT AND PLAN: 1. Acute hypoxic respiratory failure. Exact etiology likely multifactorial. We will continue BiPAP noninvasive mechanical ventilation titrating to optimal response. Consult Pulmonology Service in the a.m. Trial Lasix 40 mg IV x1 dose. 2. Atrial fibrillation with rapid ventricular response. Start digoxin 0.125 mg IV push x1 dose now. May need additional digoxin based on clinical response. Low blood pressure precludes aggressive use of diltiazem. Check 2D transthoracic echocardiogram in the a.m. Consult Cardiology Service in the a.m. 3. Acute diastolic congestive heart failure. Mild exacerbation. Lasix 40 mg IV push x1 dose. Check 2D transthoracic echocardiogram in the a.m. 4. Macrocytic anemia. Appears stable when comparing trend in the electronic medical record. No obvious source of acute blood loss currently. Continue serial monitoring. 5. Hypotension. Iatrogenic after Lasix dosing. We will initiate normal saline 500 mL bolus and monitor response. 6. Prophylaxis. SCDs while in bed. Aspirin 81 mg p.o. b.i.d.. CODE STATUS: Full. Surrogate medical decision maker is the patient's daughter. Thank you for the consult. We will continue to follow with primary service. Total critical care time, 45 minutes. Job ID: [id number]
[2019-03-19] MEDS: Ferrous Sulfate 325 MG TAB PO SCH ×2 (08:00→17:17)
--- NOTE | 2019-03-19 08:28 | RAD ---
EXAM: Single view of the chest HISTORY: Hypoxia and tachycardia COMPARISON: 02/08/2019 FINDINGS: Single view of the chest shows an enlarged but stable cardiomediastinal silhouette. The pa cemaker is unchanged in position. There are small bilateral pleural effusions. The bones are unremarkable. IMPRESSION: Small bilateral pleural effusions.
[2019-03-19] MEDS ORDERED: Metoprolol Tartrate 5 MG/5 ML VIAL ONE (08:56)
[2019-03-19] MEDS: Amiodarone 450 MG in Dextrose 5% in Water 250 ML IVPB SCH ×2 (09:56→18:41)
[2019-03-19] MEDS: Midodrine HCl 5 MG TAB PO SCH ×3 (09:57→20:39)
[2019-03-19] MEDS: Aspirin 81 mg Enteric Coated Tablet PO SCH ×2 (09:59→20:40)
[2019-03-19] MEDS: Ascorbic Acid 500 mg Chewable Tablet PO SCH ×2 (09:59→20:40)
[2019-03-19] MEDS ORDERED: Magnesium Sulfate 4 GM in Sodium Chloride 0.9% 250 ML 250 ML IVPB SCH (14:00)
--- NOTE | 2019-03-19 15:08 | CON ---
DATE OF CONSULTATION: 03/19/2019 SERVICE: Pulmonary Medicine. REASON FOR CONSULT: ICU patient. HISTORY OF PRESENT ILLNESS: The patient is an 88-year-old white male with past medical history significant for paroxysmal atrial fibrillation, and orthostatic hypotension. He was in his usual state of health. He started having frequent episodes of syncope. On one of these occasions, at the end of January, he sustained a fall and fractured his hip. On 09 February 2019, he underwent a pinning procedure. Ultimately, he continued to have difficulty maintaining balance, and sustained additional falls. Repeat hip x-ray demonstrated nonunion of the intertrochanteric fracture site. On postop day 3, his course was complicated by a bout of atrial fibrillation with RVR. He developed increasing oxygen requirements and was brought down to the ICU. He was given a beta vangie which dropped his heart rate, but his blood pressure also fell off. He temporarily required a little bit of noninvasive ventilation. He denies any fevers or chills. There were no significant overnight events other than some confusional state. The family reports that prior to these falls, he was actually in fairly decent health and was quite functional. PAST MEDICAL HISTORY: 1. Orthostatic hypotension. 2. BPH. 3. Chronic diastolic heart failure. 4. History of symptomatic bradycardia, status post pacemaker placement. 5. Squamous cell carcinoma, status post excisions. PAST SURGICAL HISTORY: 1. Left hip pinning. 2. Left hip hemiarthroplasty, 4 days postop. 3. Excision of squamous cell carcinoma. 4. Pacemaker placement. 5. Cataract surgery, bilateral. ALLERGIES: GABAPENTIN, MIRTAZAPINE, TRAMADOL. MEDICATIONS: List of his inpatient medications was reviewed. No specific updates were made at this time. FAMILY HISTORY: Noncontributory. SOCIAL HISTORY: The patient quit smoking roughly 3 months ago, but prior to that, he had a greater than 100 pack year history of smoking. Denies any alcohol or illicit drugs. He has no exposure to chemicals, dust, asbestos, or tuberculosis otherwise. REVIEW OF SYSTEMS: General, head, ears, eyes, nose, throat, cardiovascular, respiratory, GI, , musculoskeletal, neurologic, and skin are negative except as mentioned in HPI. PHYSICAL EXAMINATION: VITAL SIGNS: Afebrile, pulse 102, blood pressure 99/62, respirations 30, saturation 100%, currently on 2 L nasal cannula. GENERAL: The patient is awake and alert, in no apparent distress. LUNGS: Decent air entry. There is a slightly prolonged expiratory phase. Dependent crackles are mild. No wheezing or rhonchi appreciated. HEART: Tachycardic. Regular. ABDOMEN: Soft, nontender, and nondistended. Bowel sounds are positive. MUSCULOSKELETAL: No cyanosis or clubbing. There is no pitting in the bilateral lower extremities. NEUROLOGIC: Grossly nonfocal. LABORATORY DATA: WBC 5.9, hemoglobin 8.7, platelets 314,000 and roughly stable. Neutrophils are 87% on top of 2% bands. INR 1.2. PH 7.55, pCO2 of 23, pO2 of 300 on 100% FiO2. Basic metabolic profile is completely unremarkable except for sodium of 134, which is gently downtrending. Phosphorus 2.2. Liver function studies are otherwise unremarkable. BNP 411. TSH was previously unremarkable. Urinalysis is unremarkable. IMAGING STUDIES: Chest x-ray demonstrates blunting of the bilateral costophrenic angles. Dual-chamber pacemaker is in place. Minimal cephalization is noted. ASSESSMENT: 1. Acute hypoxic respiratory failure. 2. Atrial fibrillation with rapid ventricular response. 3. Acute on chronic diastolic heart failure. 4. Delirium. 5. Hip fracture, status post left hemiarthroplasty, postop day 4. DISCUSSION AND PLAN: I will replace the phosphorus. Nebulized medications will be provided as needed. We will wean away oxygen as tolerated. We will give him BiPAP breaks 3 times daily and increase as tolerated. Pulmonary/Critical Care will continue to follow along in this location. At this point, my index of suspicion for a pulmonary embolism is quite low. I will initiate DVT prophylaxis, and also put him on GI prophylaxis since he is on two different antiplatelet/anticoagulation medications. 70 minutes have been devoted to this patient in various activities. I personally reviewed all imaging studies and laboratory data noted within this document. For fifty percent of this time, I was interacting with the patient at the bedside or coordinating care with the care team. For the remainder of the time I was immediately available to the patient in the hospital unit. Job ID: [id number] [facility]
[2019-03-19] MEDS ORDERED: Potassium Phosphate 30 MMOL in Sodium Chloride 0.9% 250 ML 250 ML IVPB SCH (17:00)
--- NOTE | 2019-03-19 18:47 | EKG ---
Test Reason : PREOP Blood Pressure : / mmHG Vent. Rate : 090 BPM Atrial Rate : 090 BPM P-R Int : 228 ms QRS Dur : 090 ms QT Int : 364 ms P-R-T Axes : 077 -05 069 degrees QTc Int : 445 ms Sinus rhythm with 1st degree A-V block Nonspecific T wave abnormality Abnormal ECG When compared with ECG of 13-FEB-2019 14:56, Premature ventricular complexes are no longer Present MO interval has increased Confirmed by JORGE AGUERO, SGabriela ([id number]) on 03/19/2019 6:46:30 PM Referred By: TROY Confirmed By:DR. Martha PATEL MD
[2019-03-19] MEDS: Famotidine 20 MG TAB PO SCH (20:39)
[2019-03-19] MEDS: Enoxaparin Sodium 40 MG/0.4 ML SYRINGE SC SCH (20:40)
[2019-03-19] MEDS: Tamsulosin HCl 0.4 MG CAP PO SCH (20:41)
[2019-03-19] MEDS: Acetaminophen 500 MG TAB PO PRN (23:15)
[2019-03-19] MEDS: diphenhydrAMINE 25 MG CAP PO PRN (23:15)
--- NOTE | 2019-03-19 23:29 | EKG ---
Test Reason : STAT Blood Pressure : / mmHG Vent. Rate : 119 BPM Atrial Rate : 090 BPM P-R Int : 000 ms QRS Dur : 078 ms QT Int : 346 ms P-R-T Axes : 000 003 167 degrees QTc Int : 486 ms Atrial fibrillation with rapid ventricular response with premature ventricular or aberrantly conducte d complexes Septal infarct , age undetermined Abnormal ECG No previous ECGs available Confirmed by Heladio BURKS ([id number]) on 03/19/2019 11:28:59 PM Referred By: PIEDAD Confirmed By:Heladio BURKS
--- NOTE | 2019-03-19 23:29 | EKG ---
Test Reason : STAT Blood Pressure : / mmHG Vent. Rate : 111 BPM Atrial Rate : 111 BPM P-R Int : 136 ms QRS Dur : 088 ms QT Int : 334 ms P-R-T Axes : 060 027 107 degrees QTc Int : 454 ms Sinus tachycardia with Premature supraventricular complexes and with frequent Premature ventricular c omplexes Septal infarct , age undetermined Abnormal ECG When compared with ECG of 15-MAR-2019 06:57, (Unconfirmed) Premature ventricular complexes are now Present Premature supraventricular complexes are now Present MN interval has decreased Septal infarct is now Present Confirmed by Heladio BURKS ([id number]) on 03/19/2019 11:28:47 PM Referred By: PIEDAD Confirmed By:Heladio BURKS
[2019-03-20] MEDS: Sodium Chloride 0.9% 500 ML IV SCH ×2 (00:06→05:15)
--- NOTE | 2019-03-20 00:13 | CON ---
DATE OF CONSULTATION: 03/19/2019 REASON FOR CONSULT: Hematuria. CHIEF COMPLAINT: Traumatic Bolanos removal. HISTORY OF PRESENT ILLNESS: This is an 88-year-old male who was currently admitted with complications from a hip fracture. He has recently been transferred to the ICU for atrial fibrillation and respiratory distress. Earlier today, he became confused and agitated and pulled his Bolanos catheter. He developed gross hematuria afterwards. Nursing staff was unable to reposition the catheter to allow proper drainage; at which point, I was consulted. Upon interviewing the patient, he is not able to answer any of my questions and is clearly disoriented, agitated, and confused. The Bolanos catheter is clearly dislodged with the end of the catheter, almost to the patient's knee. Demetrius blood was noted in the drainage tubing. REVIEW OF SYSTEMS: Not possible due to the patient's mental status. PAST MEDICAL HISTORY: Past medical history was gleaned from the patient's chart as he is unable to give me any further information. Past medical history; enlarged prostate, heart failure, bradycardia, squamous cell carcinoma, and atrial fibrillation. PAST SURGICAL HISTORY: Left hip hemiarthroplasty, excision of squamous cell carcinoma, pacemaker, and cataract surgery. ALLERGIES: GABAPENTIN, MIRTAZAPINE, TRAMADOL. MEDICATIONS: Reviewed. Pertinent for tamsulosin. FAMILY HISTORY: No mention of urologic malignancies. SOCIAL HISTORY: Apparently, the patient has a smoking history up until recently. No substance abuse. PHYSICAL EXAMINATION: VITAL SIGNS: Afebrile. Vitals stable currently. No urine output since pulling his catheter. GENERAL: The patient is agitated, not able to converse. HEENT: Head is atraumatic, clearly has had skin cancer excised from his face. LUNGS: Unlabored breathing. Symmetric chest expansion. NECK: Supple. Trachea midline. HEART: Irregular rhythm. ABDOMEN: Soft, nontender, and nondistended. No suprapubic tenderness. No flank tenderness. : Normal external genitalia. Both testicles present in the scrotum. SKIN: Warm and dry. EXTREMITIES: Without clubbing or cyanosis. NEUROLOGIC: The patient is awake, but not oriented to person, place, or time. LABORATORY DATA: Reviewed. White count 5.9, hemoglobin 8.7. Creatinine 0.66. PROCEDURE: The patient's Bolanos catheter was removed as this was clearly not in his bladder. He was prepped and draped and under sterile conditions, I first instilled 10 mL of lubricating jelly into his urethra and with constant perineal pressure, I was able to pass a 22-Indonesian 3-way Bolanos catheter into his bladder. 10 mL were instilled in the balloon. This was connected to bag drainage, noting mildly hematuric urine at first, which quickly became dark yellow. This was fixed to his leg with foam tape. ASSESSMENT AND PLAN: Urethral trauma, hematuria. The patient will need a Bolanos catheter for 1 week if possible. Steps have been taken to help prevent repeat traumatic removal. I will continue to round on the patient over the next few days to ensure that the catheter is draining well with no hematuria. I do anticipate blood around the catheter, which is from his urethral trauma. 75 minutes spent in patient's care. Job ID: [id number]
[2019-03-20 02:27] LABS: Actual Bicarbonate (HCO3a) 15.3 mEq/L (22-28); Base Excess (BEa) -9.3 mEq/L (-2.0 to +3.0); CO2 Tension 29.2 mmHg (35.0-45.0); Calcium, Ionized 1.25 mmol/L (1.12-1.30); Carboxyhemoglobin (COHb) 1.2 gm% (0.0-3.0); Hemoglobin (Hb) 9.9 g/dL (14.0-18.0); O2 Tension (PaO2) 77.2 mmHg (> 60.0); Potassium - ABG Lab 5.59 mmol/L (3.70-5.30); pH, Arterial 7.34 (7.35-7.45)
[2019-03-20] MEDS ORDERED: Cefepime 2 GM in Sodium Chloride 0.9% 100 ML IVPB SCH (03:00)
[2019-03-20] MEDS ORDERED: Vancomycin HCl 1 GM in Premix Bag 1 BAG IVPB SCH (04:00)
--- NOTE | 2019-03-20 08:17 | RAD ---
EXAM: Single view of the chest HISTORY: Tachycardia and hypoxia COMPARISON: 03/19/2019 FINDINGS: Single view of the chest shows a normal sized cardiomediastinal silhouette. The patient is status post sternotomy. There are subtle bilateral veil-like opacities which may be layering pleural effusions. The bones are unremarkable. IMPRESSION: Possible small bilateral pleural effusions.
--- NOTE | 2019-03-20 08:23 | PDOC.HOSPP ---
- Subjective Encounter Date: 03/20/19 Encounter Time: 08:22 Subjective: Patient has had poor UOP overnight. Had broad spectrum abx started. This morning, he is non-verbal. Wearing CPAP mask. - Objective Vital Signs & Weight: Vital Signs (12 hours) Temp Pulse Pulse Ox 03/20/19 04:00 98.3 F 95 03/20/19 02:16 92 03/19/19 23:27 91 Weight Admit Weight 151 lb 2 oz Weight 151 lb 2 oz Most Recent Monitor Data Heart Rate from ECG 89 NIBP 95/63 NIBP BP-Mean 72 Respiration from ECG 43 SpO2 100 I&O: 03/19/19 03/20/19 03/21/19 06:59 06:59 06:59 Intake Total 3380 2542 Output Total 1090 405 Balance 2290 2137 Result Diagrams: 03/19/19 01:50 03/19/19 01:50 Hospitalist ROS - Medication Medications: Active Medications Generic Name Dose Route Start Last Admin Trade Name Freq PRN Reason Stop Dose Admin Acetaminophen 1,000 mg 03/18/19 18:00 03/19/19 23:15 Tylenol PO 1,000 mg Q6H PRN Administration Headache/Fever or Pain Ascorbic Acid 500 mg 03/16/19 21:00 03/19/19 20:40 Vitamin C PO 500 mg BID ROSALEE Administration Aspirin 81 mg 03/15/19 21:00 03/19/19 20:40 Ecotrin PO 81 mg BID ROSALEE Administration Diphenhydramine HCl 25 mg 03/15/19 13:00 03/19/19 23:15 Benadryl PO 25 mg Q3H PRN Administration Itching Enoxaparin Sodium 40 mg 03/19/19 21:00 03/19/19 20:40 Lovenox SC 40 mg 0900,2100 ROSALEE Administration Famotidine 20 mg 03/19/19 21:00 03/19/19 20:39 Pepcid PO 20 mg BID ROSALEE Administration Ferrous Sulfate 325 mg 03/16/19 17:00 03/19/19 17:17 Feosol PO 325 mg BID-WM ROSALEE Administration Amiodarone HCl 450 mg/ 259 mls @ 0 mls/hr 03/19/19 09:30 03/19/19 18:41 Dextrose/Water IVPB 259 mls INF ROSALEE Administration Protocol Per Protocol Cefepime HCl 2 gm/ Sodium 100 mls @ 200 mls/hr 03/20/19 03:00 03/20/19 03:11 Chloride IVPB 100 mls 0300,1500 ROSALEE Administration Vancomycin HCl 1 gm/ Device 200 mls @ 200 mls/hr 03/20/19 04:00 03/20/19 04: 35 IVPB 200 mls 0400,1600 ROSALEE Administration Midodrine 10 mg 03/16/19 15:00 03/19/19 20:39 Proamatine PO 10 mg TID ROSALEE Administration Sodium Chloride 10 ml 03/13/19 18:23 03/15/19 18:57 Flush - Normal Saline IVF 10 ml PRN PRN Administration Saline Flush Tamsulosin HCl 0.4 mg 03/16/19 21:00 03/19/19 20:41 Flomax PO 0.4 mg HS ROSALEE Administration - Exam General - other findings: BIPAP, ill-appearing, resp distress. Heart: no murmur, irregular Respiratory: tachypneic Respiratory - other findings: Generally clear. No rales, ronchi. Gastrointestinal: soft, non-distended, no rigidity, diminished bowl sounds Extremities: no cyanosis, no clubbing, no edema Extremities - other findings: Cool to touch. Psychiatric - other findings: Staring forward. Not responding much. Hosp A/P (1) S/P hip hemiarthroplasty Code(s): Z96.649 - PRESENCE OF UNSPECIFIED ARTIFICIAL HIP JOINT Status: Acute (2) Acute respiratory failure with hypoxia Code(s): J96.01 - ACUTE RESPIRATORY FAILURE WITH HYPOXIA Status: Acute (3) Atrial fibrillation with rapid ventricular response Code(s): I48.91 - UNSPECIFIED ATRIAL FIBRILLATION Status: Acute (4) Oliguria Code(s): R34 - ANURIA AND OLIGURIA Status: Acute (5) BPH (benign prostatic hyperplasia) Code(s): N40.0 - BENIGN PROSTATIC HYPERPLASIA WITHOUT LOWER URINRY TRACT SYMP Status: Acute (6) Hypotension Status: Acute - Plan Stat CXR obtained. Does not look too bad. Not a lot of edema. Possible RLL density. ABG with partially compensated metabolic acidosis with hypoxia on Bipap. EKG with sinus rhythm with ectopy. Bolus NS. May need pressors. Discussed with Dr. Billings May need intubation. Family just arriving. Started abx last night. If he can get stabilized (intubated) may be able to CTA.
[2019-03-20 08:38] LABS: Hemoglobin 8.7 g/dL (14.0-18.0); Mean Corpuscular HGB CONC 31.8 g/dL (32.0-36.0); Mean Corpuscular Hemoglobin 33.8 pg (27.0-31.0); Mean Platelet Volume 7.6 fL (7.4-10.4); Platelet Count 275 thou/uL (130-400); Red Blood Cell (RBC) Count 2.56 mill/uL (4.70-6.10); White Blood Cell (WBC) Count 6.6 thou/uL (4.8-10.8)
--- NOTE | 2019-03-20 08:43 | PDOC.EVN ---
Event Note - Event Note Event Note: Spoke with the patient's daughter/POA. He has a directive that indicates he does not want life support measures and wants to be allowed to pass. Daughter confirms that he does not want intubation. DNR order entered. Dr. Billings made aware.
[2019-03-20] MEDS ORDERED: Norepinephrine 8 MG/0.9% NS 250 ML IVPB SCH (08:45)
[2019-03-20] MEDS ORDERED: Morphine 4 MG/ML VIAL ONE ×3 (09:03→11:00)
[2019-03-20] MEDS: Midodrine HCl 5 MG TAB PO SCH ×2 (09:10→15:41)
[2019-03-20] MEDS: Famotidine 20 MG TAB PO SCH (09:10)
[2019-03-20] MEDS: Ferrous Sulfate 325 MG TAB PO SCH ×2 (09:10→18:45)
[2019-03-20] MEDS: Ascorbic Acid 500 mg Chewable Tablet PO SCH (09:10)
[2019-03-20] MEDS: Aspirin 81 mg Enteric Coated Tablet PO SCH (09:10)
[2019-03-20 09:36] LABS: Band 58 % (5-11); Eosinophils 4 % (0-10); Lymphocytes 12 % (21-51); MDiff Complete? YES; Macrocytosis SLIGHT = 6-15 cells (100X) (0-5/hpf); Metamyelocyte 5 % (0-0); Monocytes 8 % (0-10); Neutrophil 13 % (42-75); Platelet Morphology Comment Appears Adequate; Polychromasia SLIGHT = 2-3 cells (100X) (0-2/hpf); Vacuoles SLIGHT
[2019-03-20 09:42] LABS: ALT (SGPT) 19 U/L (8-55); AST (SGOT) 73 U/L (5-34)
[2019-03-20 09:49] LABS: Alkaline Phosphatase 80 U/L (40-110); Anion Gap 19 mmol/L (10-20); BUN (Urea Nitrogen) 32 mg/dL (8.4-25.7); Bilirubin, Total 1.2 mg/dL (0.2-1.2); Calcium 9.1 mg/dL (7.8-10.44); Carbon Dioxide 15 mmol/L (23-31); Globulin 2.3 g/dL (2.4-3.5); Glucose 79 mg/dL (83-110)
[2019-03-20 10:01] LABS: Albumin 2.7 g/dL (3.4-4.8); Calc. Creatinine Clearance 23 mL/min (70-130); Chloride 104 mmol/L (98-107); Estimated GFR-MDRD 28; Potassium 5.6 mmol/L (3.5-5.1); Sodium 132 mmol/L (136-145)
[2019-03-20 10:43] LABS: Lactic Acid 9.3 mmol/L (0.5-2.2)
[2019-03-20] MEDS: Hydrocortisone Sod Succ/PF 100 mg/2 ml Vial IVP SCH ×2 (11:03→15:41)
[2019-03-20] MEDS: Enoxaparin Sodium 40 MG/0.4 ML SYRINGE SC SCH (11:04)
[2019-03-20 11:30] VITALS: TEMP 97.7
--- NOTE | 2019-03-20 11:56 | PRG ---
DATE OF SERVICE: 03/20/2019 PROCEDURE: The patient's catheter was interrogated by irrigating, 120 mL were instilled with 120 mL coming back out, tinted yellow. The catheter seems to be in good position and irrigating properly. Further workup for his diminished urine output will need to focus on his renal function. Job ID: [id number] MTDD
[2019-03-20] MEDS: Morphine 2 MG/ML SYRINGE SLOW IVP PRN ×2 (15:19→15:32)
--- NOTE | 2019-03-20 15:22 | PDOC.CPN ---
- Subjective Date: 03/20/19 Time: 15:28 Interval history: The pt seen and examined. No overnight events. No cardiac complaints. - Objective Allergies/Adverse Reactions: Allergies Allergy/AdvReac Type Severity Reaction Status Date / Time gabapentin AdvReac Verified 03/13/19 20:06 mirtazapine [From Remeron] AdvReac Verified 03/13/19 20:06 tramadol AdvReac Verified 03/13/19 20:06 Visit Medications: Current Medications Acetaminophen (Tylenol) 1,000 mg PO Q6H PRN PRN Reason: Headache/Fever or Pain Last Admin: 03/19/19 23:15 Dose: 1,000 mg Ascorbic Acid (Vitamin C) 500 mg PO BID [facility] Last Admin: 03/20/19 09:10 Dose: Not Given Aspirin (Ecotrin) 81 mg PO BID ROSALEE Last Admin: 03/20/19 09:10 Dose: Not Given Diphenhydramine HCl (Benadryl) 25 mg PO Q3H PRN PRN Reason: Itching Last Admin: 03/19/19 23:15 Dose: 25 mg Diphenhydramine HCl (Benadryl) 25 mg IM Q3H PRN PRN Reason: Itching Diphenhydramine HCl (Benadryl) 25 mg IVP Q3H PRN PRN Reason: Itching Emollient Cream (Hydrocerin Cream) 0 gm TOP PRN PRN PRN Reason: Itching Enoxaparin Sodium (Lovenox) 40 mg SC 0900 ROSALEE Famotidine (Pepcid) 20 mg PO 2100 ROSALEE Ferrous Sulfate (Feosol) 325 mg PO BID[facility] Last Admin: 03/20/19 09:10 Dose: Not Given Hydrocortisone Sodium Succinate (Solu-Cortef) 50 mg IVP Q6H ROSALEE Last Admin: 03/20/19 11:03 Dose: 50 mg Amiodarone HCl 450 mg/ (Dextrose/Water) 259 mls @ 0 mls/hr IVPB INF ROSALEE; Protocol Last Admin: 03/19/19 18:41 Dose: 259 mls Norepinephrine Bitartrate (Levophed) 250 mls @ 0 mls/hr IVPB INF ROSALEE; Protocol Last Admin: 03/20/19 09:44 Dose: 250 mls Cefepime HCl 1 gm/ Sodium (Chloride) 100 mls @ 200 mls/hr IVPB 0300 [facility] Vancomycin HCl 1 gm/ Device 200 mls @ 200 mls/hr IVPB .PENDING LEVELS [facility] Ibuprofen (Motrin) 600 mg PO Q8H PRN PRN Reason: Pain Midodrine (Proamatine) 10 mg PO TID [facility] Last Admin: 03/20/19 09:10 Dose: Not Given Miscellaneous Information (Communication Order-Pharmacy) 1 each FS PRN PRN PRN Reason: ABX Miscellaneous Information (Communication Order-Pharmacy) 1 each FS ASDIR [facility] Miscellaneous Medication (Pharmacy To Dose) 1 each IVPB PRN PRN PRN Reason: Pharmacy to dose Morphine Sulfate (Morphine) 1 mg SLOW IVP Q15MIN PRN PRN Reason: PAIN/SOB Naloxone HCl (Narcan) 0.2 mg IV Q5MIN PRN PRN Reason: RR <=8 OR OBTUNDED/UNAROUSABLE Naloxone HCl (Narcan) 0.1 mg IVP Q15MIN PRN PRN Reason: URINARY RETENTION Ondansetron HCl (Zofran) 4 mg IVP Q6H PRN PRN Reason: Nausea/Vomiting Promethazine HCl (Phenergan) 12.5 mg IM Q4H PRN PRN Reason: Nausea Promethazine HCl (Phenergan Suppository) 25 mg [place] Q4H PRN PRN Reason: Nausea/Vomiting Quetiapine Fumarate (Seroquel) 25 mg PO HS [facility] Sodium Chloride (Flush - Normal Saline) 10 ml IVF PRN PRN PRN Reason: Saline Flush Last Admin: 03/15/19 18:57 Dose: 10 ml Zolpidem Tartrate (Ambien) 5 mg PO HSPRN PRN PRN Reason: Insomnia Vital Signs & Weight: Vital Signs Temp Pulse Ox 03/20/19 11:00 97.7 F 03/20/19 07:00 98.0 F 03/20/19 04:00 98.3 F 95 Admit Weight 151 lb 2 oz Weight 151 lb 2 oz - Physical Exam Neck: supple neck Cardiac: regular rate and rhythm, S1/S2 Lungs: decreased breath sounds, bibasilar rales Extremities: no edema - Labs Result Diagrams: 03/20/19 08:00 03/20/19 08:00 Troponin/CKMB Troponin I 0.018 ng/mL (< 0.028) 03/19/19 01:50 - Telemetry Sinus rhythms and dysrhythmias: sinus rhythm - Assessment/Plan Assessment/Plan: 1. Afib with RVR - well controlled HR; with Amiodarone drip; Lovenox qd for now due to hx of Anemia 2. S/P hip hemiarthroplasty 3. Acute respiratory failure with hypoxia - on bipap 4. hx of syncopal episode with s/p PMplacement in 10/2018 5. ADDY - may need NS bolus? MAR reviewed * Echo in 10/2018 with EF 50-55%, grade I dd, mild MR, TR, and [place] * DNAR pt. seen and eval. by me. I agree with the A/p by the [employer]EC[employer]. Family is at the bedside. pt. is nonresponsive. Appears terminal. family aware. jackie
[2019-03-20] MEDS ORDERED: Sodium Chloride 0.9% 1,000 ML IV SCH (15:30)
[2019-03-20] MEDS ORDERED: Sodium Bicarbonate 150 MEQ in Dextrose 5% in Water 1,000 ML IV SCH (15:30)
--- NOTE | 2019-03-20 15:45 | PRG ---
DATE OF SERVICE: 03/20/2019 SERVICE: Pulmonary Medicine. INTERVAL HISTORY: Overnight, the patient had a pretty significant setback. His blood pressures started falling off. He became increasingly sleepy and had increasing work of breathing. Repeat ABG did not look that bad, but clinically at bedside, the patient looked toxic. We repeated some laboratories this morning. It suggested that he had severe lactic acidosis. We talked to the patient's family about needing to do things like intubating him, putting lines in him, boosting his blood pressure up, so that we could even figure out what the problem is, so that we could fix it. Ultimately, they reaffirmed that he is a strict DNI/DNR and would not want aggressive maneuvers moving forward. They are okay with some pressors if necessary. Once we can stabilize, we will be in the process of moving him downstairs for CT scan. At this point, he really cannot provide much in the way of history. OBJECTIVE: VITAL SIGNS: Afebrile, pulse 97, blood pressure 101/46, respirations 30, saturation 90%, currently on 60% FiO2 delivered via BiPAP. GENERAL: The patient is encephalopathic. He is uncomfortable appearing. He is grunting. HEENT: Normocephalic and atraumatic. Sclerae white. Conjunctivae pink. Oral mucosa is moist without lesions. LUNGS: Decent air entry. There is some dependent crackles which are minimal. No prolonged expiratory phase or wheezing is appreciated. HEART: Normal rate, regular. ABDOMEN: Firm. It is exquisitely tender to palpation. He is guarding. Bowel sounds are absent right now. This is a dramatic change compared to yesterday. MUSCULOSKELETAL: No cyanosis or clubbing. There is no pitting edema. NEUROLOGIC: Grossly nonfocal. LABORATORY DATA: WBC 6.6, hemoglobin 8.7, platelets 275,000. Band count 58% on top of 13% neutrophils. INR 1.2. PH 7.34, pCO2 of 29, PO2 of 77. Creatinine 2.2 and significantly up trending, BUN 32. Bicarb 15, potassium 5.6, sodium 132. Lactic acid 9.3. Liver function studies are unremarkable otherwise. Urinalysis is negative. ASSESSMENT: 1. Acute hypoxic respiratory failure. 2. Atrial fibrillation with rapid ventricular response, return to sinus rhythm. 3. Chronic diastolic heart failure. 4. Septic shock, suspected. 5. Acute abdomen. 6. Delirium. 7. Hip fracture, status post left hemiarthroplasty, postop day 5. DISCUSSION AND PLAN: At this time, I am concerned for an acute abdominal issue. If we can get him stabilized hemodynamically, we will move him downstairs for a CT scan of the chest, abdomen, and pelvis. My suspicion is that he has developed a catastrophic abdominal injury. If this were the case, it would be most appropriate given his lab values to transition over to comfort care based on what the patient's family is telling me. If on the other hand, we find something that we can treat medically, we will move forward with the best supportive care possible short of intubation and chest compressions. If medical management would be reasonable moving forward, he will likely require a central line and subsequent pressors. He remains a DNAR. CRITICAL CARE TIME: 30 minutes. Job ID: [id number] MTDD
[2019-03-20] MEDS ORDERED: Famotidine 20 MG TAB PO SCH (21:00)
[2019-03-20] MEDS ORDERED: Heparin 5,000 UNITS/ML VIAL SC SCH (21:00)
[2019-03-20] MEDS ORDERED: metroNIDAZOLE 500 MG in Premix Bag 1 BAG IVPB SCH (22:00)
[2019-03-21] MEDS ORDERED: Cefepime 1 GM in Sodium Chloride 0.9% 100 ML IVPB SCH (03:00)
[2019-03-21] MEDS ORDERED: Vancomycin HCl 1 GM in Premix Bag 1 BAG IVPB SCH (04:00)
[2019-03-21] MEDS ORDERED: Enoxaparin Sodium 40 MG/0.4 ML SYRINGE SC SCH (09:00)
--- NOTE | 2019-03-21 12:25 | DIS ---
DATE OF ADMISSION: 03/13/2019 DATE OF DISCHARGE: 03/20/2019 DISCHARGE DIAGNOSES: 1. Septic shock. 2. Acute hypoxic respiratory failure. 3. Ischemic bowel, presumed. 4. Atrial fibrillation with rapid ventricular response. 5. Acute metabolic encephalopathy. 6. Acute kidney injury. 7. Macrocytic anemia. 8. Hematuria secondary to Bolanos trauma. 9. Hip fracture, status post hemiarthroplasty. HISTORY OF PRESENT ILLNESS: This patient is an 88-year-old male who had a prior hip fracture requiring surgical intervention with subsequent fall and re-fracture. The patient presented back to our facility and underwent a hemiarthroplasty. The patient was subsequently doing reasonably well. However, he had the fairly abrupt onset of atrial fibrillation with rapid ventricular response. He subsequently had decline in his blood pressure, appeared to have hypoxic respiratory failure and developed what appeared to be an acute abdomen. It was concerning that the patient had developed an ischemic colitis as a result of the atrial fibrillation and hypotension resulting in septic shock. The patient was transferred to the ICU and Pulmonary Critical Care was consulted. The patient's family was made aware of the situation. The patient was too unstable for us to appropriately perform CT scans in order to help confirm any diagnoses. The patient's family understood this with the patient's lactic acid level did come back significantly elevated. However, the patient's family made it clear that they did not want to pursue further life support type measures including intubation and understood that the patient was unstable and wanted to pursue a palliative comfort care approach and this was honored. The patient subsequently further declined and was pronounced . Family was present. No autopsies were obtained. TIME SPENT: Total time in discharge activities was 39 minutes. Job ID: [id number]
--- NOTE | 2019-03-25 23:51 | EKG ---
Test Reason : Blood Pressure : / mmHG Vent. Rate : 087 BPM Atrial Rate : 087 BPM P-R Int : 172 ms QRS Dur : 094 ms QT Int : 380 ms P-R-T Axes : 021 022 106 degrees QTc Int : 457 ms Sinus rhythm with sinus arrhythmia with occasional Premature ventricular complexes Nonspecific T wave abnormality Abnormal ECG When compared with ECG of 19-MAR-2019 01:59, Sinus rhythm has replaced Atrial fibrillation QRS duration has increased Criteria for Septal infarct are no longer Present ST no longer depressed in Anterior leads Nonspecific T wave abnormality no longer evident in Anterior leads Confirmed by Heladio BURKS ([id number]) on 03/25/2019 11:50:47 PM Referred By: AYSE Confirmed By:Heladio BURKS
== END 2019-03-20 21:41 | disposition expired | DRG 469 ==
LOC: SURG B 18:14 → CCU 03-19 01:35
PROVIDERS: ADMIT Orthopaedic Surgery; ATTEND Orthopaedic Surgery
PROC: 0SRS0J9 Replacement of Left Hip Joint, Femoral Surface with Synthetic Substitute, Cemented, Open Approach (ICD-10-PCS; principal; 2019-03-15)
PROC: 0QP704Z Removal of Internal Fixation Device from Left Upper Femur, Open Approach (ICD-10-PCS; 2019-03-15)
PROC: 3E0T3BZ Introduction of Anesthetic Agent into Peripheral Nerves and Plexi, Percutaneous Approach (ICD-10-PCS; 2019-03-15)
PROC: 5A09457 Assistance with Respiratory Ventilation, 24-96 Consecutive Hours, Continuous Positive Airway Pressure (ICD-10-PCS; 2019-03-19)
DX: T84.115A Breakdown (mechanical) of internal fixation device of left femur, initial encounter (principal); J96.01 Acute respiratory failure with hypoxia; I50.33 Acute on chronic diastolic (congestive) heart failure; A41.9 Sepsis, unspecified organism; R65.21 Severe sepsis with septic shock; G93.41 Metabolic encephalopathy; S37.30XA Unspecified injury of urethra, initial encounter; E87.2 Acidosis; K55.9 Vascular disorder of intestine, unspecified; N17.9 Acute kidney failure, unspecified; Z66 Do not resuscitate; Z51.5 Encounter for palliative care; D53.9 Nutritional anemia, unspecified; N40.0 Benign prostatic hyperplasia without lower urinary tract symptoms; I95.9 Hypotension, unspecified; I48.91 Unspecified atrial fibrillation; D50.9 Iron deficiency anemia, unspecified; R41.0 Disorientation, unspecified; R34 Anuria and oliguria; R31.9 Hematuria, unspecified; Z95.0 Presence of cardiac pacemaker; Z88.8 Allergy status to other drugs, medicaments and biological substances; Z85.89 Personal history of malignant neoplasm of other organs and systems; Z98.42 Cataract extraction status, left eye; Z87.891 Personal history of nicotine dependence; Z98.41 Cataract extraction status, right eye; W01.0XXA Fall on same level from slipping, tripping and stumbling without subsequent striking against object, initial encounter; Y93.89 Activity, other specified; Y92.238 Other place in hospital as the place of occurrence of the external cause
CPT/HCPCS: 36415; 36416; 71045; 80048; 80053; 81001; 82805; 83605; 83735; 83880; 84100; 84484; 85014; 85018; 85025; 85610; 85730; 93005; 93010; 94660; C1713; C1781; J0282; J0690; J0692; J1160; J1650; J1720; J1885; J1940; J2001; J2270; J2370; J2704; J3370; J3475; J3490; J7050; J7070; Q0163; S0020